=== PATIENT | male | born 1975 | race Caucasian/White ===

== ENCOUNTER 2021-07-21 05:49 | Outpatient (CLI) | payer BC, MEDICAID, SELFPAY ==
--- NOTE | 2021-07-21 06:15 | USCV_ITS ---
Rios Moreno Age: 46 Gender: M : 1975 Exam Date: 07/21/2021 06:12 Ordering Phys: Bernabe Disla Technologist: Exam Location: [facility] – [place] Indication: lt leg pain with exertion Risk Factors: Previous Vascular Surgery: RIGHT LEFT BP: 120.0 / 70.00 BP: 120.0/ 70.00 0 0 Waveform Velocity (cm/s) Velocity (cm/s) Waveform Triphasic 84.7 Iliac Prox 136.7 Triphasic Triphasic 82.3 Iliac Mid 97.9 Triphasic Triphasic 76.9 Iliac Distal 68.0 Triphasic Triphasic 72.2 LAND MANAGEMENT SUPERVISOR 57.3 Triphasic Triphasic 94.8 SFA Prox 79.5 Triphasic Triphasic 105.8 SFA Mid 90.9 Triphasic Triphasic SFA Dist Triphasic 93.7 122.2 Triphasic 57.5 POP 53.5 Triphasic Triphasic 69.1 PACS ADMINISTRATOR 63.0 Biphasic Biphasic 68.0 DPA 45.1 Biphasic 1.0 JOSETTE 1.0 FINDINGS Resting JOSETTE of 1.0 bilaterally Normal arterial Doppler flow velocities and Doppler waveforms bilaterally CONCLUSIONS No evidence of any significant arterial obstruction, based on the above findings. Dr Jaclyn Puentes MD [facility] (Electronically Signed) Final Date: 21 Jul 2021 19:16 S
== END 2021-07-21 05:50 | disposition home or self-care (01) ==
LOC: RAD 05:51
PROVIDERS: PCP Registered Nurse; Visit Provider Nurse Practitioner Family
DX: M79.604 Pain in right leg (principal); M79.605 Pain in left leg
CPT/HCPCS: 93925

== ENCOUNTER → 2021-09-22 15:58 | Outpatient (BNVA) | payer BC, MEDICAID, SELFPAY | PROVIDERS: PCP Nurse Practitioner Family; Visit Provider Internal Medicine Cardiovascular Disease | DX: R06.02 Shortness of breath (principal); R00.0 Tachycardia, unspecified; R07.9 Chest pain, unspecified; R06.00 Dyspnea, unspecified; Z86.711 Personal history of pulmonary embolism; R55 Syncope and collapse; I49.1 Atrial premature depolarization; I49.3 Ventricular premature depolarization | CPT/HCPCS: 93005; 93270; 99204; 99205 ==

== ENCOUNTER 2022-08-27 18:10 | Emergency (ER) | payer BC, MEDICAID, SELFPAY ==
[2022-08-27] VITALS (8 sets, daily range): BP systolic 110–140; BP diastolic 72–86; PULSE 82–103; RESP 18; TEMP 36.7; O2SAT 95–99; BMI 22.6
--- NOTE | 2022-08-27 18:57 | CTR_ITS ---
PROCEDURE INFORMATION: Exam: CT Abdomen And Pelvis With Contrast Exam date and time: 08/27/2022 7:15 PM Age: 47 years old Clinical indication: Nausea and vomiting; Abdominal pain; Localized; Prior surgery; Surgery date: 6+ months; Surgery type: Appy; Patient HX: C/O left sided abd pain with n/v. ; Additional info: L flank pain TECHNIQUE: Imaging protocol: Computed tomography of the abdomen and pelvis with contrast. Radiation optimization: All CT scans at this facility use at least one of these dose optimization techniques: automated exposure control; mA and/or kV adjustment per patient size (includes targeted exams where dose is matched to clinical indication); or iterative reconstruction. Contrast material: OMNI 350; Contrast volume: 100 ml; Contrast route: INTRAVENOUS (IV); REPORTING DATA: Count of CT and Cardiac NM exams in prior 12 months: This patient has received 3 known CTs and 0 known cardiac nuclear medicine studies in the 12 months prior to the current study. COMPARISON: CT chest w con* [id number] 08/21/2022 2:13 PM RADIATION DOSE METRICS: Total DLP (mGy-cm): 595.39 FINDINGS: Mediastinal space: There is mucosal thickening of the distal esophagus. Diaphragm: Small hiatal hernia. Liver: Sub cm cyst with benign features in the right hepatic lobe. Gallbladder and bile ducts: Normal. No calcified stones. No ductal dilation. Pancreas: Normal. No ductal dilation. Spleen: Normal. No splenomegaly. Adrenal glands: Normal. No mass. Kidneys and ureters: There is an 8.2 x 4.5 x 4.5 mm calculus in the proximal left ureter.Mild to moderate hydronephrosis/hydroureter and associated inflammatory stranding. Stomach and bowel: Unremarkable. No obstruction. No mucosal thickening. Appendix: No evidence of appendicitis. Intraperitoneal space: Unremarkable. No free air. No significant fluid collection. Vasculature: Unremarkable. No abdominal aortic aneurysm. Lymph nodes: Unremarkable. No enlarged lymph nodes. Urinary bladder: Unremarkable as visualized. Reproductive: There are calcifications in the prostate gland. Bones/joints: Unremarkable. No acute fracture. Soft tissues: Unremarkable. CT/CT abdomen pelvis w con* [id number] IMPRESSION: 1. There is an 8 mm calculus in the proximal left ureter with obstructive changes as described above. 2. Mucosal thickening of the distal esophagus consistent with nonspecific esophagitis.
[2022-08-27] MEDS: ondansetron 2 mg/ML SDV 2 mL 4 MG IVP (19:05)
[2022-08-27] MEDS: HYDROmorphone 1 mg/mL INJ 1 mL IVP ×2 (19:05→19:30)
[2022-08-27] MEDS: sodium chloride 0.9% 1,000 ML 999 ML IV (19:05)
[2022-08-27 19:17] LABS: Basophils % 0.1 %; Eosinophils # 0.1 10^3/uL (0.0-0.8); Eosinophils % 0.4 %; Hematocrit 45.1 % (42.0-52.0); Hemoglobin 15.3 g/dL (11.7-16.6); Lymphocytes # 0.7 10^3/uL (0.8-4.8); Lymphocytes % 5.2 %; Mean Corpuscular HGB Conc 33.9 g/dL (30.0-36.0); Mean Corpuscular Hemoglobin 30.7 pg (28.0-34.0); Mean Corpuscular Volume 90.4 fl (80-94); Mean Platelet Volume 10.3 fL (7.4-10.4); Monocytes # 0.4 10^3/uL (0.2-0.9); Monocytes % 3.1 %; Neutrophils # 12.11 10^3/uL (1.8-7.7); Neutrophils % 90.8 %; Nucleated Red Blood Cells % 0 %; Platelet Count 227 10^3/cmm (130-400); Red Blood Count 4.99 10^6/uL (4.1-5.3); White Blood Count 13.4 10^3/uL (4.0-10.0)
[2022-08-27] MEDS: iohexol 350 mg/mL 500 mL Btl (per mL) IV (19:20)
[2022-08-27 19:38] LABS: Alanine Aminotransferase 11 U/L (0-41); Albumin Level 4.8 g/dL (3.5-5.2); Alkaline Phosphatase 69 U/L (40-130); Aspartate Amino Transferase 14 U/L (0-40); Blood Urea Nitrogen 15 mg/dL (6-20); Calcium 9.2 mg/dL (8.5-10.5); Carbon Dioxide 26 mmol/L (22-29); Chloride 102 mmol/L (98-107); Globulin 2.7 g/dL (1.3-4.6); Glomerular Filtration Rate 54.3 mL/min (90-130); Glucose 116 mg/dL (65-115); Lipase 24 U/L (13-60); Osmolality Calculated 292 mOsm/kg (285-295); Sodium 140 mmol/L (136-145); Total Bilirubin 0.4 mg/dL (0.15-1.2); Total Protein 7.5 g/dL (6.6-8.7)
--- NOTE | 2022-08-27 21:39 | W.ED.ABDPA2 ---
HPI - Abdominal Pain General: Chief Complaint: Abdominal Pain Stated Complaint: N/V Time Seen by Provider: 08/27/22 18:44 Source: patient History of Present Illness: 47-year-old male with no significant medical history. He says that he fell recently, fracturing his shoulder and a couple of ribs. He began to have left-sided flank pain earlier in the day that is significantly intense with nausea and vomiting. No diarrhea no fever. No change in his urination as far as pain or color, although he notes a decreased in amount today. MD elicited complaint: abdominal pain and flank pain Pertinent past history: none Onset (ago): hour(s) Pain Consistency: intermittent Location: LLQ Severity: severe Quality: cramping and stabbing Radiation: LLQ Migration to: no migration Exacerbating factors: nothing Relieving factors: nothing Associated Symptoms: Reports chills, nausea, poor appetite and vomiting; Denies constipation, dyspepsia, dysuria, fever(s) and hematemesis Review of Systems Const: Reports: chills; Denies: fever(s) Card: Denies: chest pain Resp: Denies: dyspnea GI: Reports: abdominal pain, nausea and vomiting; Denies: hematemesis or constipation : Reports: flank pain; Denies: dysuria Musc: Reports: back pain PFSH ED PFSH: Medical History History of DVT (deep vein thrombosis) History of gastric ulcer History of left shoulder fracture TIA (transient ischemic attack) x 4 Surgical History History of appendectomy History of tonsillectomy and adenoidectomy Family History Mother Diabetes Chronic kidney disease (CKD) Grandfather Cancer Lung disease Father Heart disease CAD (coronary artery disease) Family/Other CAD (coronary artery disease) Diabetes Heart disease Stroke Grandmother Diabetes Stroke Denies family history of Clotting disorder Dementia Suicide Anesthesia complication Bleeding disorder Social History Smoking and tobacco status: current some day smoker smokeless tobacco Smokeless tobacco user: chewing tobacco Alcohol intake: never Substance/Drug Use: never Adopted: No Caregiver/support person: No Sexually active: Yes Do you think of yourself as: Straight/Heterosexual Current gender identity: Male Physical Exam Const: GENERAL APPEARANCE: cooperative and ill appearing (mildly); not frail appearing HENMT: COMMON NORMALS: normocephalic, atraumatic and Normal external nose present HEAD & SCALP: normocephalic and atraumatic FACE & SINUS: normal facial exam and face symmetric NOSE: Normal external nose present Eye: COMMON NORMALS: Equal, round and reactive pupils present and EOMs intact bilaterally PUPIL: Yes Equal, round and reactive pupils present Neck/C-Spine: GENERAL: Yes trachea midline Chest: CHEST: Yes Symmetrical chest wall rise Resp: COMMON NORMALS: normal respiratory effort, No retractions, No use of accessory muscles and clear to auscultation bilaterally AUSCULTATION: clear to auscultation bilaterally Cardio: COMMON NORMALS: regular rate and regular rhythm RATE: regular rate RHYTHM: regular rhythm GI: COMMON NORMALS: Normal to inspection, nondistended, normoactive bowel sounds present PALPATION: Yes Tenderness to palpation present (GI) Details: LLQ : BLADDER/KIDNEY EXAM: Yes CVA tenderness on the right Back/Pelvis: GENERAL BACK: Yes CVA tenderness Extremity: COMMON NORMALS: no pedal edema Neuro: MAURICIO COMA SCALE: document GCS findings [place] coma scale eye opening: Spontaneous [place] coma scale verbal response: Orientated [place] coma scale motor response: Obey commands Mauricio coma scale total score: 15 SENSORY EXAM: Yes extremities (intact) Psych: COMMON NORMALS: speech normal SPEECH: Yes normal speech Skin: COMMON NORMALS: no rashes or lesions noted GENERAL SKIN EXAM: no rashes or lesions noted Course Vital Signs: Vital signs: Vital Signs Temperature 98.0 F 08/27/22 18:15 Pulse Rate 88 08/27/22 23:06 Respiratory Rate 18 08/27/22 23:06 Blood Pressure 129/72 08/27/22 23:06 Pulse Oximetry 97 08/27/22 23:06 Oxygen Delivery Me thod Room Air 08/27/22 18:15 MDM - Abdominal Pain Medical Decision Making Vitals are normal. White blood cell count is 13.4. Creatinine is 1.4. Other laboratory not remarkable. CT shows an 8 mm calculus in the proximal left ureter. Urinalysis is pending. Urinalysis shows no infection. Pain is better controlled. No more vomiting. Will allow home on pain medication, antiemetic, and Flomax. Urgent urology referral as an outpatient, as 8 mm stones will likely require intervention. Case management has been contacted to make the patient an appointment. He knows to return for worsening symptoms Lab Data 08/27/22 19:08 08/27/22 19:08 Labs/Radiology: Radiology Impressions Abdomen/Pelvis CT 08/27/22 18:57 IMPRESSION: 1. There is an 8 mm calculus in the proximal left ureter with obstructive changes as described above. 2. Mucosal thickening of the distal esophagus consistent with nonspecific esophagitis. Laboratory Results WBC 13.4 10^3/uL (4.0-10.0) H 08/27/22 19:08 RBC 4.99 10^6/uL (4.1-5.3) 08/27/22 19:08 Hgb 15.3 g/dL (11.7-16.6) 08/27/22 19:08 Hct 45.1 % (42.0-52.0) 08/27/22 19:08 MCV 90.4 fl (80-94) 08/27/22 19:08 MCH 30.7 pg (28.0-34.0) 08/27/22 19:08 MCHC 33.9 g/dL (30.0-36.0) 08/27/22 19:08 RDW 12.0 % (12.1-15.1) L 08/27/22 19:08 Plt Count 227 10^3/cmm (130-400) 08/27/22 19:08 MPV 10.3 fL (7.4-10.4) 08/27/22 19:08 Neut % (Auto) 90.8 % 08/27/22 19:08 Lymph % (Auto) 5.2 % 08/27/22 19:08 [place] % (Auto) 3.1 % 08/27/22 19:08 Eos % (Auto) 0.4 % 08/27/22 19:08 Baso % (Auto) 0.1 % 08/27/22 19:08 Neut # (Auto) 12.11 10^3/uL (1.8-7.7) H 08/27/22 19:08 Lymph # (Auto) 0.7 10^3/uL (0.8-4.8) L 08/27/22 19:08 [place] # (Auto) 0.4 10^3/uL (0.2-0.9) 08/27/22 19:08 Eos # (Auto) 0.1 10^3/uL (0.0-0.8) 08/27/22 19:08 Baso # (Auto) 0.0 10^3/uL (0.0-0.1) 08/27/22 19:08 Nucleated RBC % (auto) 0 % 08/27/22 19:08 Nucleated RBCs # 0.0 /100WBC 08/27/22 19:08 Sodium 140 mmol/L (136-145) 08/27/22 19:08 Potassium 5.0 mmol/L (3.5-5.1) 08/27/22 19:08 Chloride 102 mmol/L (98-107) 08/27/22 19:08 Carbon Dioxide 26 mmol/L (22-29) 08/27/22 19:08 Anion Gap 17.0 (5-19) 08/27/22 19:08 BUN 15 mg/dL (6-20) 08/27/22 19:08 Creatinine 1.4 mg/dL (0.7-1.2) H 08/27/22 19:08 GFR Calculation 54.3 mL/min (90-130) L 08/27/22 19:08 Glucose 116 mg/dL (65-115) H 08/27/22 19:08 Calculated Osmolality 292 mOsm/kg (285-295) 08/27/22 19:08 Calcium 9.2 mg/dL (8.5-10.5) 08/27/22 19:08 Total Bilirubin 0.4 mg/dL (0.15-1.2) 08/27/22 19:08 AST 14 U/L (0-40) 08/27/22 19:08 ALT 11 U/L (0-41) 08/27/22 19:08 Alkaline Phosphatase 69 U/L (40-130) 08/27/22 19:08 C-Reactive Protein 3.0 mg/L (0.0-4.9) 08/27/22 19:08 Total Protein 7.5 g/dL (6.6-8.7) 08/27/22 19:08 Albumin 4.8 g/dL (3.5-5.2) 08/27/22 19:08 Globulin 2.7 g/dL (1.3-4.6) 08/27/22 19:08 Lipase 24 U/L (13-60) 08/27/22 19:08 Urine Color Yellow (Yellow) 08/27/22 21:34 Urine Appearance Cloudy (CLEAR) A 08/27/22 21:34 Urine pH 8 (5-7) H 08/27/22 21:34 Ur Specific [place] 1.010 (1.005-1.030) 08/27/22 21:34 Urine Protein Trace (Negative) 08/27/22 21:34 Urine Glucose (UA) Norm (Normal) 08/27/22 21:34 Urine Ketones 1+ (Negative) H 08/27/22 21:34 Urine Blood 3+ (Negative) H 08/27/22 21:34 Urine Nitrate Negative (Negative) 08/27/22 21:34 Urine Bilirubin Neg (Negative) 08/27/22 21:34 Prot Sulfosalicylic Acd Negative (Negative) 08/27/22 21:34 Urine Urobilinogen 1 mg/dL (Negative) H 08/27/22 21:34 Ur Leukocyte Esterase Negative (Negative) 08/27/22 21:34 Urine RBC 40-50 /hpf (0-2) H 08/27/22 21:34 Urine WBC 0-4 /hpf (0-5) H 08/27/22 21:34 Ur Squamous Epith Cells 0-4 /hpf (0-5) H 08/27/22 21:34 Amorphous Sediment Not Reportable 08/27/22 21:34 Urine Bacteria 3+ /hpf (NONE) H 08/27/22 21:34 Discharge Plan Discharge Patient Disposition: Home Clinical Impression: Ureterolithiasis Condition: Stable Prescriptions: New Percocet 7.5-325 mg tablet 1 tab PO Q6H PRN (Reason: pain) Qty: 10 0RF ondansetron 4 mg film 4 mg PO DAILY PRN (Reason: nausea and vomiting) Qty: 10 0RF Flomax 0.4 mg capsule 0.4 mg PO DAILY Qty: 10 0RF No Action albuterol sulfate [ProAir HFA] 90 mcg/actuation HFA aerosol inhaler 2 puff inhalation QID PRN (Reason: shortness of breath or wheezing) Qty: 6.7 0RF aspirin [Adult Aspirin Regimen] 81 mg tablet,delayed release (DR/EC) 81 mg PO DAILY PRN Discharge Orders: Discharge ED (Routine); Ordered 08/27/22 Ordered By: Stan Avery Referrals: Emilia Menchaca FNP [Primary Care Provider] - Patient Instructions: Kidney Stones (ED), Opioid Safety, Pain Management Activity Restrictions/Additional Instructions: Medications as directed. Case management will call you likely tomorrow with a urology appointment this coming week. Return for fever greater than 100, vomiting liquids or medications despite treatment, increasing pain despite treatment, other concerning symptoms. Coding Level of Care Code ED Blind Teacher for Jamaal Mcintosh
[2022-08-27 22:23] LABS: Blood Urine 3+ (Negative); Glucose Urine UA Norm (Normal); Ketones Urine 1+ (Negative); Nitrate Urine Negative (Negative); Protein Urine Trace (Negative); Urine Appearance Cloudy (CLEAR); Urine Color Yellow (Yellow); pH Urine 8 (5-7)
[2022-08-27 22:24] LABS: Add Urine Microscopic? YES; Bilirubin Urine Neg (Negative); Leukocyte Esterase Urine Negative (Negative); Urobilinogen Urine 1 mg/dL (Negative)
[2022-08-27 22:25] LABS: RBC Urine 40-50 /hpf (0-2); Sulfosalicylic Acid Urine Negative (Negative); WBC Urine 0-4 /hpf (0-5)
[2022-08-27 22:26] LABS: Add Urine Culture? Yes; Bacteria Urine 3+ /hpf; Squamous Epithelial Cell Urine 0-4 /hpf (0-5)
[2022-08-27] MEDS: oxyCODONE-APAP 5-325 mg Tablet 2 TAB PO (22:44)
[2022-08-27] MEDS: HYDROmorphone 1 mg/mL INJ 1 mL 0.5 MG IVP (22:46)
[2022-08-27] MEDS: tamsulosin 0.4 mg Capsule PO (23:04)
--- NOTE | 2022-08-28 10:05 | PC.SOCIAL ---
Addendum entered by Leonor Cope 09/07/22 15:26: [facility] did receive patients information. Addendum entered by Leonor Cope 09/07/22 15:23: medical office manager received voicemail from [facility] requesting patients images be uploaded to the cloud. medical office manager asked community arts worker to upload images to Going. Original Note: Urology Referral Spoke with patient, he does not have a preference where referral is sent. Referral faxed to [facility] at this time.
== END 2022-08-27 23:18 | disposition home or self-care (01) ==
PROVIDERS: Emergency Provider Emergency Medicine; PCP Nurse Practitioner Family
DX: N20.1 Calculus of ureter (principal); Z79.82 Long term (current) use of aspirin; F17.220 Nicotine dependence, chewing tobacco, uncomplicated; Z86.73 Personal history of transient ischemic attack (TIA), and cerebral infarction without residual deficits
CPT/HCPCS: 36415; 74177; 80053; 81001; 83690; 85025; 86140; 87086; 96374; 96375; 96376; 99285; J1170; J2405; J7030; Q9967

== ENCOUNTER → 2022-08-30 09:38 | Outpatient (BNVA) | payer BC, MEDICAID, SELFPAY | PROVIDERS: PCP Nurse Practitioner Family; Referring Provider Family Medicine; Visit Provider Specialist | DX: S42.112A Displaced fracture of body of scapula, left shoulder, initial encounter for closed fracture (principal); W20.8XXA Other cause of strike by thrown, projected or falling object, initial encounter | CPT/HCPCS: 73010 ==

== ENCOUNTER → 2022-09-13 09:41 | Outpatient (BNVA) | payer BC, MEDICAID, SELFPAY | PROVIDERS: PCP Nurse Practitioner Family; Visit Provider Specialist | DX: S42.112D Displaced fracture of body of scapula, left shoulder, subsequent encounter for fracture with routine healing (principal); W20.8XXD Other cause of strike by thrown, projected or falling object, subsequent encounter | CPT/HCPCS: 73010 ==

== ENCOUNTER 2022-10-03 06:00 | Outpatient (CLI) | payer BC, MEDICAID, SELFPAY | END 2022-10-03 06:01 | LOC: SPT 10-10 07:44 | PROVIDERS: PCP Nurse Practitioner Family; Visit Provider Specialist | DX: Z46.89 Encounter for fitting and adjustment of other specified devices (principal); S42.109D Fracture of unspecified part of scapula, unspecified shoulder, subsequent encounter for fracture with routine healing; X58.XXXD Exposure to other specified factors, subsequent encounter | CPT/HCPCS: 97760; L3670 ==

== ENCOUNTER → 2022-10-09 08:02 | Outpatient (BNVA) | payer BC, MEDICAID, SELFPAY | PROVIDERS: PCP Nurse Practitioner Family; Visit Provider Specialist | DX: S42.112D Displaced fracture of body of scapula, left shoulder, subsequent encounter for fracture with routine healing; W20.8XXD Other cause of strike by thrown, projected or falling object, subsequent encounter | CPT/HCPCS: 73030 ==

== ENCOUNTER → 2022-10-23 08:09 | Outpatient (BNVA) | payer BC, MEDICAID, SELFPAY | PROVIDERS: PCP Nurse Practitioner Family; Visit Provider Nurse Practitioner Family | DX: S42.112D Displaced fracture of body of scapula, left shoulder, subsequent encounter for fracture with routine healing; X58.XXXD Exposure to other specified factors, subsequent encounter | CPT/HCPCS: 73030 ==

== ENCOUNTER 2022-10-26 08:53 | Emergency (ER) | payer BC, MEDICAID, SELFPAY ==
[2022-10-26 08:58] VITALS: BP 108/73; PULSE 81; RESP 16; O2SAT 98
[2022-10-26 09:04] VITALS: TEMP 36.7
--- NOTE | 2022-10-26 09:20 | ED_ITS ---
Documented by User: MALACHI Herrera 10/26/22 12:57 HPI - Extremity Problem General: Chief complaint: Extremity Injury, Upper Stated complaint: left shoulder, physician sent get ct scan Time Seen by Provider: 10/26/22 09:05 Source: patient Mode of arrival: ambulatory Limitations: no limitations History of Present Illness: Patient is a 47-year-old male with history of DVT/PE who presents to the emergency department complaining of left arm numbness, pain, and color/temp changes onset 3 weeks. Patient was sent from ortho for evaluation of his symptoms stating that upon their examination he was having numbness, pain, and decreased temperature of the left upper extremity. Patient states that his initial shoulder injury occurred approximately 2 months ago when he was working out in the price chopping down trees, when a branch that was cut down swung around and hit him in the posterior left shoulder. He has been followed by ortho and has been doing his range of motion and PT as instructed, as he suffered a left scapular fracture at the time. Approximately 3 weeks ago, he started having sporadic episodes of intense left shoulder pain that has been associated with the coolness, numbness, and pain down his left arm. These episodes have increased in pain and frequency since they began 3 weeks ago, for which he was prescribed gabapentin by ortho to begin taking. However, this has not improved his symptoms and he sent today specifically for an ultrasound rule out of an acute arterial/venous occlusion of the left upper extremity. Ortho is also trying to get him scheduled for nerve conduction studies. He denies any chest pain, shortness of breath, or any other symptoms. MD Complaint: extremity pain, extremity swelling and cold extremity Onset (ago): week(s) Location: left Quality: sharp (Severe) Relieving factors: nothing Exacerbating factors: range of motion and palpation Associated symptoms: Deny chest pain or fever(s) Context: other (Left scapular fracture status post trauma) Review of Systems Const: Denies: fever(s) or chills Eyes: Denies: change in vision, blurry vision, photophobia, eye discharge, floaters or seeing flashes ENMT: Denies: throat pain, odynophagia, ear or mastoid pain, ear discharge, nasal discharge, epistaxis or sinus pain Card: Denies: chest pain, palpitations, lightheadedness, syncope or pre- syncope Resp: Denies: dyspnea or pain on inspiration GI: Denies: abdominal pain : Denies: flank pain or hematuria Musc: Reports: extremity pain (Left upper extremity), joint pain (Left shoulder), limited range of motion (Left upper extremity) and muscle weakness (Left upper extremity); Denies: neck pain or back pain Neuro: Reports: numbness in extremities (Left upper extremity) and sensory changes (Left upper extremity/coolness); Denies: headache(s), weakness in extremities or dizziness PFSH ED PFSH: Medical History History of DVT (deep vein thrombosis) History of gastric ulcer History of left shoulder fracture TIA (transient ischemic attack) x 4 Surgical History History of appendectomy History of tonsillectomy and adenoidectomy Family History Mother Diabetes Chronic kidney disease (CKD) Grandfather Cancer Lung disease Father Heart disease CAD (coronary artery disease) Family/Other CAD (coronary artery disease) Diabetes Heart disease Stroke Grandmother Diabetes Stroke Denies family history of Clotting disorder Dementia Suicide Anesthesia complication Bleeding disorder Social History Smoking and tobacco status: current some day smoker smokeless tobacco Smokeless tobacco user: chewing tobacco Alcohol intake: never Substance/Drug Use: never Adopted: No Caregiver/support person: No Sexually active: Yes Do you think of yourself as: Straight/Heterosexual Current gender identity: Male Physical Exam Const: COMMON NORMALS: no acute distress, average body habitus, patient oriented x3, no limitations, healthy appearing, alert and well nourished HENMT: COMMON NORMALS: normocephalic and atraumatic HEAD & SCALP: normal to inspection, normocephalic and atraumatic Neck/C-Spine: COMMON NORMALS: full ROM, no lymphadenopathy and supple Resp: COMMON NORMALS: normal respiratory effort and clear to auscultation bilaterally AUSCULTATION: clear to auscultation bilaterally Cardio: COMMON NORMALS: regular rate and regular rhythm RATE: regular rate RHYTHM: regular rhythm Back/Pelvis: COMMON NORMALS: thoracic and lumbar spine normal to inspection Extremity: COMMON NORMALS: capillary refill normal, no joint enlargement and no clubbing, cyanosis or edema GENERAL: Yes normal exam except as noted LEFT UPPER EXTREMITY: Yes shoulder joint OTHER: Range of motion of the left shoulder is limited due to patient's pain. The left hand is minimally cool to the touch compared to the right, with some extension up the arm proximally. No evidence of left hand edema compared to the right. Decreased balance wheel arm burnisher strength left hand. He exhibits 2+ radial pulse bilaterally. No significant discoloration noted at this time. Decreased sensation to light touch of the left hand. No evidence of trauma, bruising, or deformity. No swelling noted anywhere on extremity. Neuro: COMMON NORMALS: patient oriented x3, moves all extremities, no focal motor deficits and no sensory deficits noted SENSORIUM/ORIENTATION: Yes alert Skin: COMMON NORMALS: no rashes or lesions noted GENERAL SKIN EXAM: no rashes or lesions noted Course Vital Signs: Vital signs: Vital Signs Temperature 98.1 F 10/26/22 09:04 Pulse Rate 81 10/26/22 08:58 Respiratory Rate 17 10/26/22 10:09 Blood Pressure 108/73 10/26/22 08:58 Pulse Oximetry 98 10/26/22 08:58 Oxygen Delivery Me thod Room Air 10/26/22 08:58 MDM - Extremity (Nontraumatic) Medical Decision Making Chart reviewed and patient discussed with midlevel. Agree with assessment and plan. US arterial showing no acute occlusion. US venous showing a nonocclusive thrombus to his basilic vein. Obviously this is a superficial vessel however given patient's history of previous DVT/PE I think it is reasonable to place him on a low-dose anticoagulation. I discussed with Dr. Phan who recommends Eliquis 2.5 mg twice daily. He will follow-up with primary care in the next 2 weeks to determine length of treatment. Recommend continuing to follow-up with orthopedics and plan for upcoming nerve conduction studies for further evaluation. Return to ED precautions given. Lab Data Radiology Impressions Duplex Scan Upper Extremity Artery 10/26/22 09:46 IMPRESSION: No acute findings. Discharge Plan Discharge Patient Disposition: Home Clinical Impression: Acute thrombosis of left basilic vein Condition: Stable Prescriptions: New Eliquis 2.5 mg tablet 2.5 mg PO BID Qty: 60 0RF No Action albuterol sulfate [ProAir HFA] 90 mcg/actuation HFA aerosol inhaler 2 puff inhalation QID PRN (Reason: shortness of breath or wheezing) Qty: 6.7 0RF (DME) Left shoulder immobilizer See Rx Instructions .Route .MEDSUPPLY Qty: 1 0RF Rx Instructions: As directed gabapentin 300 mg capsule 300 mg PO BID Qty: 30 0RF ondansetron 4 mg film 4 mg PO DAILY PRN (Reason: nausea and vomiting) Qty: 10 0RF Discharge Orders: Discharge ED (Routine); Ordered 10/26/22 Ordered By: Felicitas Rowe Referrals: Emilia Menchaca FNP [Primary Care Provider] - Patient Instructions: Superficial Thrombophlebitis (ED) Activity Restrictions/Additional Instructions: As we discussed your venous ultrasound shows a clot in one of your superficial veins in your arm. Due to your history of previous blood clots we are opting to place you on anticoagulation therapy at this time although not at a full dose. I would like you to continue following up with your primary care provider as well as your orthopedic provider in regards to the continued shoulder pain and numbness/tingling in your arm. Coding Level of Care Code ED Farmworker Fur for Chg Fwd Documented by User: Jackson Phan DO 10/26/22 16:36 HPI - Extremity Problem General: Chief complaint: Extremity Injury, Upper Stated complaint: left shoulder, physician sent get ct scan Time Seen by Provider: 10/26/22 09:05 [facility] ED PFS: Medical History History of DVT (deep vein thrombosis) History of gastric ulcer History of left shoulder fracture TIA (transient ischemic attack) x 4 Surgical History History of appendectomy History of tonsillectomy and adenoidectomy Family History Mother Diabetes Chronic kidney disease (CKD) Grandfather Cancer Lung disease Father Heart disease CAD (coronary artery disease) Family/Other CAD (coronary artery disease) Diabetes Heart disease Stroke Grandmother Diabetes Stroke Denies family history of Clotting disorder Dementia Suicide Anesthesia complication Bleeding disorder Social History Smoking and tobacco status: current some day smoker smokeless tobacco Smokeless tobacco user: chewing tobacco Alcohol intake: never Substance/Drug Use: never Adopted: No Caregiver/support person: No Sexually active: Yes Do you think of yourself as: Straight/Heterosexual Current gender identity: Male Course Vital Signs: Vital signs: Vital Signs Temperature 98.1 F 10/26/22 09:04 Pulse Rate 81 10/26/22 08:58 Respiratory Rate 17 10/26/22 10:09 Blood Pressure 108/73 10/26/22 08:58 Pulse Oximetry 98 10/26/22 08:58 Oxygen Delivery Me thod Room Air 10/26/22 08:58 MDM - Extremity (Nontraumatic) Medical Decision Making Chart reviewed and patient discussed with midlevel. Agree with assessment and plan. Lab Data Radiology Impressions Duplex Scan Upper Extremity Artery 10/26/22 09:46 IMPRESSION: No acute findings. Discharge Plan Discharge Patient Disposition: Home Clinical Impression: Acute thrombosis of left basilic vein Condition: Stable Prescriptions: New Eliquis 2.5 mg tablet 2.5 mg PO BID Qty: 60 0RF No Action albuterol sulfate [ProAir HFA] 90 mcg/actuation HFA aerosol inhaler 2 puff inhalation QID PRN (Reason: shortness of breath or wheezing) Qty: 6.7 0RF (DME) Left shoulder immobilizer See Rx Instructions .Route .MEDSUPPLY Qty: 1 0RF Rx Instructions: As directed gabapentin 300 mg capsule 300 mg PO BID Qty: 30 0RF ondansetron 4 mg film 4 mg PO DAILY PRN (Reason: nausea and vomiting) Qty: 10 0RF Discharge Orders: Discharge ED (Routine); Ordered 10/26/22 Ordered By: Felicitas Rowe Referrals: Emilia Menchaca FNP [Primary Care Provider] - Patient Instructions: Superficial Thrombophlebitis (ED) Activity Restrictions/Additional Instructions: As we discussed your venous ultrasound shows a clot in one of your superficial veins in your arm. Due to your history of previous blood clots we are opting to place you on anticoagulation therapy at this time although not at a full dose. I would like you to continue following up with your primary care provider as well as your orthopedic provider in regards to the continued shoulder pain and numbness/tingling in your arm. Coding Level of Care Code ED Farmworker Fur for Jamaal Mcintosh
--- NOTE | 2022-10-26 09:46 | USCV_ITS ---
Rios Moreno Age: 47 Gender: M : 1975 Exam Date: 10/26/2022 10:10 Ordering Phys: Felicitas Rowe Technologist: Joseph Zaman [place]am [place] [facility] [place] Indication: lt arm pain and numbness cold fingers PROCEDURES: Venous duplex imaging was performed in only the left upper extremity. The following venous structures were evaluated: internal jugular vein, subclavian vein, axillary vein, and brachial veins. FINDINGS: There is non occluding thrombus in the lt Basilic vein in the upper arm. 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
--- NOTE | 2022-10-26 09:46 | USR_ITS ---
PROCEDURE INFORMATION: Exam: US Duplex Left Upper Extremity Arteries Exam date and time: 10/26/2022 10:21 AM Age: 47 years old Clinical indication: Pain; Arm, lower; Left; Additional info: Left arm pain/numbness TECHNIQUE: Imaging protocol: Left Real-time ultrasound scan of the arteries of the left upper extremity with 2-D durand scale, color Doppler flow and spectral waveform analysis. COMPARISON: CT chest w con* [id number] 08/21/2022 2:13 PM FINDINGS: Left subclavian artery: No occlusion or significant stenosis. Normal waveform. Left axillary artery: No occlusion or significant stenosis. Normal waveform. Left brachial artery: No occlusion or significant stenosis. Normal waveform. Left radial artery: Not evaluated Left ulnar artery: Not evaluated Soft tissues: Unremarkable. US/[place] [id number] IMPRESSION: No acute findings.
[2022-10-26 10:09] VITALS: RESP 17
[2022-10-26] MEDS: morphine 4 mg/mL SDV 1 mL IM (10:09)
== END 2022-10-26 12:43 | disposition home or self-care (01) ==
PROVIDERS: Emergency Provider Physician Assistant; PCP Nurse Practitioner Family
DX: I65.1 Occlusion and stenosis of basilar artery (principal); F17.220 Nicotine dependence, chewing tobacco, uncomplicated; Z86.73 Personal history of transient ischemic attack (TIA), and cerebral infarction without residual deficits
CPT/HCPCS: 93931; 93971; 96372; 99284; J2270

== ENCOUNTER → 2022-11-09 09:12 | Outpatient (BNVA) | payer BC, MEDICAID, SELFPAY | PROVIDERS: PCP Nurse Practitioner Family; Visit Provider Nurse Practitioner Family | DX: Z79.01 Long term (current) use of anticoagulants (principal); N20.0 Calculus of kidney | CPT/HCPCS: 81000; 85025 ==

== ENCOUNTER → 2022-11-13 14:11 | Outpatient (BNVA) | payer BC, MEDICAID, SELFPAY | PROVIDERS: PCP Nurse Practitioner Family; Visit Provider Specialist | DX: S42.112D Displaced fracture of body of scapula, left shoulder, subsequent encounter for fracture with routine healing; X58.XXXD Exposure to other specified factors, subsequent encounter; I82.612 Acute embolism and thrombosis of superficial veins of left upper extremity; Z79.01 Long term (current) use of anticoagulants | CPT/HCPCS: 73030 ==

== ENCOUNTER → 2022-11-29 08:07 | Outpatient (BNVA) | payer BC, MEDICAID, SELFPAY | PROVIDERS: PCP Nurse Practitioner Family; Visit Provider Nurse Practitioner Family | DX: R39.9 Unspecified symptoms and signs involving the genitourinary system (principal); R31.9 Hematuria, unspecified; Z79.01 Long term (current) use of anticoagulants | CPT/HCPCS: 81000 ==

== ENCOUNTER 2022-12-07 09:06 | Outpatient (CLI) | payer BC, MEDICAID, SELFPAY ==
--- NOTE | 2022-12-07 09:30 | US_ITS ---
WS: [id number] ULTRASOUND RENAL TECHNIQUE: Ultrasound examination of both kidneys. CLINICAL INFORMATION: R31.9 - Hematuria, unspecified COMPARISON: None. FINDINGS: RIGHT: Right kidney is normal in size and appearance. Echogenicity: Normal. Cortical thickness: 1.5 cm; Normal. Hydronephrosis: None. Perinephric fluid: None. Right kidney measures: 9.1,9.3 cm x 4.5 cm x 4.0 cm. LEFT: Left kidney is normal in size and appearance. Echogenicity: Normal. Cortical thickness: 1.2 cm; Normal. Hydronephrosis: None. Perinephric fluid: None. Left kidney measures: 8.9 cm x 5.0 cm x 4.2 cm. Normal visualized aorta. Normal bladder. IMPRESSION: 1. Normal renal ultrasound 2. No hydronephrosis in either kidney. 3. Normal bladder.
== END 2022-12-07 09:07 | disposition home or self-care (01) ==
LOC: RAD 09:09
PROVIDERS: PCP Nurse Practitioner Family; Visit Provider Nurse Practitioner Family
DX: R31.9 Hematuria, unspecified (principal)
CPT/HCPCS: 76770

== ENCOUNTER → 2022-12-11 14:40 | Outpatient (BNVA) | payer BC, MEDICAID, SELFPAY | PROVIDERS: PCP Nurse Practitioner Family; Visit Provider Nurse Practitioner Family | DX: R39.9 Unspecified symptoms and signs involving the genitourinary system (principal); R31.9 Hematuria, unspecified | CPT/HCPCS: 81000; 87086 ==

== ENCOUNTER → 2022-12-21 11:24 | Outpatient (BNVA) | payer BC, MEDICAID, SELFPAY | PROVIDERS: PCP Nurse Practitioner Family; Visit Provider Specialist | DX: R31.9 Hematuria, unspecified; S42.112D Displaced fracture of body of scapula, left shoulder, subsequent encounter for fracture with routine healing; X58.XXXD Exposure to other specified factors, subsequent encounter | CPT/HCPCS: 73030; 81000 ==

== ENCOUNTER 2022-12-28 15:27 | Outpatient (CLI) | payer BC, MEDICAID, SELFPAY ==
--- NOTE | 2022-12-28 17:00 | CT_ITS ---
WS: [id number] CT LEFT SHOULDER, NONCONTRAST, 3D. HISTORY: SCAPULAR FRACTURE continued pain months after fracture. Technique: All CT scans at [facility] use at least one of these dose optimization techniques: automated exposure control; mA and/or kV adjustment per patient size (includes targeted exams where dose is matched to clinical indication); or iterative reconstruction. DLP: 423.99 mGy.cm COMPARISON: Radiograph 12/21/2022 Nonhealed fracture involving the body of the LEFT scapula. There is a fracture in the mid body displa arsalan by 4.8 mm. There is no callus formation. Fracture does not extend to involve the acromion or the coracoid. No glenoid fracture. Humeral head is normally seated in the glenoid. The clavicle is normal . No significant soft tissue edema at the fracture site. Noncalcified 3 mm nodule LEFT lower lobe stabl e since 08/21/2022. Additional calcified LEFT lower lobe nodules. IMPRESSION: Nonhealed fracture displaced by 4.8 mm involving the body of the scapula similar to the original CT o f 08/21/2022.
== END 2022-12-28 15:28 | disposition home or self-care (01) ==
LOC: RAD 15:30
PROVIDERS: PCP Nurse Practitioner Family; Visit Provider Specialist
DX: S42.11 Fracture of body of scapula (principal); X58.XXXD Exposure to other specified factors, subsequent encounter
CPT/HCPCS: 73200

== ENCOUNTER 2023-02-06 15:11 | Emergency (ER) | payer BC, MEDICAID, SELFPAY ==
--- NOTE | 2023-02-06 15:30 | ED_ITS ---
Documented by User: MALACHI Herrera 02/09/23 09:01 HPI - Extremity Problem General: Chief complaint: Extremity Injury, Upper Stated complaint: previous left arm injury/blood clot,Dr Wynne sent Time Seen by Provider: 02/06/23 15:20 Source: patient Mode of arrival: ambulatory Limitations: no limitations History of Present Illness: Patient is a nice 47-year-old male who presents to ED today at the request of the orthopedic clinic. Apparently back in October he was diagnosed with a superficial thrombus to his left basilic vein. He had suffered a scapular fracture a few months prior to this. Due to a previous history of DVT and subsequent PE he was placed on a low-dose Eliquis. He states he has been taking this medication as prescribed. He states he has an upcoming kidney procedure and was told by the orthopedic clinic to come to the emergency department for a repeat ultrasound of the left arm to make sure thrombus has dissolved prior to stopping his Eliquis for the upcoming procedure. Patient states he has been using a bone stimulator for his scapula fracture and states while using this he has pain in his arm. MD Complaint: extremity pain Location: left and upper extremity Radiation: none Relieving factors: nothing Associated symptoms: Reports no associated symptoms; Deny chest pain or rash Review of Systems Card: Denies: chest pain Resp: Denies: dyspnea Musc: Reports: extremity pain; Denies: neck pain, back pain, extremity swelling, joint swelling, joint redness or joint warmth Skin/Breast: Denies: rash Neuro: Denies: headache(s), numbness in extremities, weakness in extremities or sensory changes PFS ED PFSH: Medical History Fracture of left scapular body with delayed healing Complex regional pain syndrome I of upper limb Hx of nephrolithotomy with removal of calculi History of DVT (deep vein thrombosis) History of left shoulder fracture TIA (transient ischemic attack) x 4 History of gastric ulcer Surgical History History of appendectomy History of tonsillectomy and adenoidectomy Family History Mother Diabetes Chronic kidney disease (CKD) Grandfather Cancer Lung disease Father Heart disease CAD (coronary artery disease) Family/Other CAD (coronary artery disease) Diabetes Heart disease Stroke Grandmother Diabetes Stroke Denies family history of Clotting disorder Dementia Suicide Anesthesia complication Bleeding disorder Social History Smoking and tobacco/nicotine status: current some day tobacco/nicotine user smokeless tobacco Smokeless tobacco user: chewing tobacco Alcohol intake: never Substance/Drug Use: never Adopted: No Caregiver/support person: No Sexually active: Yes Do you think of yourself as: Straight/Heterosexual Current gender identity: Male Physical Exam Const: COMMON NORMALS: no acute distress, average body habitus, patient oriented x3, no limitations, healthy appearing, alert and well nourished GENERAL APPEARANCE: cooperative ORIENTATION/CONSCIOUSNESS: Yes awake, Yes oriented to person, Yes oriented to place and Yes oriented to time Chest: COMMONS NORMALS: normal inspection of the chest Resp: COMMON NORMALS: normal respiratory effort and clear to auscultation bilaterally AUSCULTATION: clear to auscultation bilaterally Cardio: COMMON NORMALS: regular rate and regular rhythm RATE: regular rate RHYTHM: regular rhythm Extremity: COMMON NORMALS: normal to inspection, capillary refill normal, no joint enlargement, no clubbing, cyanosis or edema, no calf tenderness and no pedal edema GENERAL: Yes normal exam except as noted LEFT UPPER EXTREMITY: Yes shoulder joint (TTP over known scapular fracture) Left shoulder joint: Yes neurovascular exam (normal) OTHER: normal arterial pulses throughout extremity; no color/temp changes noted; normal cap refill/sensation; no edema noted Neuro: COMMON NORMALS: patient oriented x3, moves all extremities, no focal motor deficits and no sensory deficits noted SENSORIUM/ORIENTATION: Yes alert, Yes oriented to person, Yes oriented to place and Yes oriented to time Skin: COMMON NORMALS: no rashes or lesions noted GENERAL SKIN EXAM: no rashes or lesions noted Course Vital Signs: Vital signs: Vital Signs Temperature 98.3 F 02/06/23 15:34 Pulse Rate 80 02/06/23 17:41 Respiratory Rate 17 02/06/23 17:41 Blood Pressure 102/66 02/06/23 17:41 Pulse Oximetry 99 02/06/23 17:41 Oxygen Delivery Me thod Room Air 02/06/23 17:41 MDM - Extremity (Nontraumatic) Lab Data Radiology Impressions Venous Duplex 02/06/23 16:08 IMPRESSION: No evidence of deep vein thrombosis. Discharge Plan Discharge Patient Disposition: Home Clinical Impression: H/O blood clots, Chronic anticoagulation Condition: Stable Prescriptions: No Action (DME) Left shoulder immobilizer See Rx Instructions .Route .MEDSUPPLY Qty: 1 0RF Rx Instructions: As directed (DME) Bone Growth Stimulator See Rx Instructions .Route .MEDSUPPLY Qty: 1 0RF Rx Instructions: As directed Eliquis 2.5 mg tablet 2.5 mg PO BID Qty: 60 2RF hydrocodone-acetaminophen 5-325 mg tablet 1 tab PO TID PRN (Reason: pain) 7 Days Qty: 21 0RF Discharge Orders: Discharge ED (Routine); Ordered 02/06/23 Ordered By: Kenzie Spann Referrals: Emilia Menchaca FNP [Primary Care Provider] - Discharge Diet: Usual diet Discharge Activity: Increase activity as tolerated Activity Restrictions/Additional Instructions: Ultrasound today reveals no findings of any type of deep or superficial clot. Please notify your surgeon to make them aware so they may choose when to have you stop your anticoagulation therapy prior to surgery. Sign Out Sign Out Data: Patient Sign Out occurred on 02/06/23 at 17:05. Patient's care was discussed, and care was transferred from MALACHI Herrera to MALACHI Lackey. Coding Level of Care Code ED Welfare Project Manager for Chg Fwd Documented by User: MALACHI Lackey 02/06/23 17:50 HPI - Extremity Problem General: Chief complaint: Extremity Injury, Upper Stated complaint: previous left arm injury/blood clot,Dr Wynne sent Time Seen by Provider: 02/06/23 15:20 PFSH ED PFSH: Medical History Fracture of left scapular body with delayed healing Complex regional pain syndrome I of upper limb Hx of nephrolithotomy with removal of calculi History of DVT (deep vein thrombosis) History of left shoulder fracture TIA (transient ischemic attack) x 4 History of gastric ulcer Surgical History History of appendectomy History of tonsillectomy and adenoidectomy Family History Mother Diabetes Chronic kidney disease (CKD) Grandfather Cancer Lung disease Father Heart disease CAD (coronary artery disease) Family/Other CAD (coronary artery disease) Diabetes Heart disease Stroke Grandmother Diabetes Stroke Denies family history of Clotting disorder Dementia Suicide Anesthesia complication Bleeding disorder Social History Smoking and tobacco/nicotine status: current some day tobacco/nicotine user smokeless tobacco Smokeless tobacco user: chewing tobacco Alcohol intake: never Substance/Drug Use: never Adopted: No Caregiver/support person: No Sexually active: Yes Do you think of yourself as: Straight/Heterosexual Current gender identity: Male Course Vital Signs: Vital signs: Vital Signs Temperature 98.3 F 02/06/23 15:34 Pulse Rate 80 02/06/23 17:41 Respiratory Rate 17 02/06/23 17:41 Blood Pressure 102/66 02/06/23 17:41 Pulse Oximetry 99 02/06/23 17:41 Oxygen Delivery Me thod Room Air 02/06/23 17:41 MDM - Extremity (Nontraumatic) Medical Decision Making Kenzie Spann PA-C: Transfer of care from Felicitas Rowe PA-C at 1700. I was notified that we are still waiting for ultrasound results to finalize as it appears patient was sent here to the emergency department for rule out of DVT. Ultrasound results are negative for DVT or findings of his previous superficial thrombus. I encourage patient to notify his surgeon's office as he was instructed to stop his anticoagulation therapy on the eighth for his procedure on the . I encouraged him to reach out to the office to make them aware he had been evaluated with negative ultrasound results. Patient verbalizes understanding and agreement to treatment plan. Differential Diagnosis Unlikely herpes zoster, gout, cellulitis or deep venous thrombosis of upper extremity Lab Data Radiology Impressions Venous Duplex 02/06/23 16:08 IMPRESSION: No evidence of deep vein thrombosis. All radiology interpretation(s) finalized by discharge Discharge Plan Discharge Patient Disposition: Home Clinical Impression: H/O blood clots, Chronic anticoagulation Condition: Stable Prescriptions: No Action (DME) Left shoulder immobilizer See Rx Instructions .Route .MEDSUPPLY Qty: 1 0RF Rx Instructions: As directed (DME) Bone Growth Stimulator See Rx Instructions .Route .MEDSUPPLY Qty: 1 0RF Rx Instructions: As directed Eliquis 2.5 mg tablet 2.5 mg PO BID Qty: 60 2RF hydrocodone-acetaminophen 5-325 mg tablet 1 tab PO TID PRN (Reason: pain) 7 Days Qty: 21 0RF Discharge Orders: Discharge ED (Routine); Ordered 02/06/23 Ordered By: Kenzie Spann Referrals: Emilia Menchaca FNP [Primary Care Provider] - Discharge Diet: Usual diet Discharge Activity: Increase activity as tolerated Activity Restrictions/Additional Instructions: Ultrasound today reveals no findings of any type of deep or superficial clot. Please notify your surgeon to make them aware so they may choose when to have you stop your anticoagulation therapy prior to surgery. Sign Out Sign Out Data: Patient Sign Out occurred on 02/06/23 at 17:05. Patient's care was discussed, and care was transferred from MALACHI Herrera to MALACHI Lackey. Coding Level of Care Code ED Welfare Project Manager for Jamaal Mcintosh
[2023-02-06 15:34] VITALS: BP 124/71; PULSE 87; RESP 18; TEMP 36.8; BMI 22.4
--- NOTE | 2023-02-06 16:08 | USR_ITS ---
PROCEDURE INFORMATION: Exam: US Duplex Left Upper Extremity Veins, Limited Exam date and time: 02/06/2023 4:52 PM Age: 47 years old Clinical indication: Pain; Arm, upper; Left; Prior surgery; Surgery date: 1-6 months; Surgery type: Shoulder; Additional info: Pain, previous svt? , Recent fracture/injury TECHNIQUE: Imaging protocol: Real-time duplex ultrasound of the left extremity with 2-D durand scale, color Doppler flow and spectral waveform analysis including responses to compression and other maneuvers (when performed) with image documentation. Limited exam focused on the left upper extremity veins. COMPARISON: CT shoulder LT wo con* [id number] 12/28/2022 4:09 PM FINDINGS: Left deep veins: Unremarkable. Axillary and brachial veins are patent throughout without thrombus. Normal Doppler waveforms. Normal compressibility and/or augmentation response. Visualized internal jugular and subclavian veins are patent. Superficial veins: Visualized basilic vein is patent without thrombus. Cephalic vein not definitively identified on exam. Soft tissues: Unremarkable. US/[place] [id number] IMPRESSION: No evidence of deep vein thrombosis.
[2023-02-06 16:13] VITALS: BP 108/68; PULSE 85; RESP 14; O2SAT 98; O2SAT 99
[2023-02-06 17:41] VITALS: BP 102/66; PULSE 77; PULSE 80; RESP 16; RESP 17; O2SAT 99
== END 2023-02-06 17:45 | disposition home or self-care (01) ==
PROVIDERS: Emergency Provider Physician Assistant; PCP Nurse Practitioner Family
DX: M79.602 Pain in left arm (principal); D68.318 Other hemorrhagic disorder due to intrinsic circulating anticoagulants, antibodies, or inhibitors; Z79.01 Long term (current) use of anticoagulants; F17.220 Nicotine dependence, chewing tobacco, uncomplicated; Z86.73 Personal history of transient ischemic attack (TIA), and cerebral infarction without residual deficits; Z86.718 Personal history of other venous thrombosis and embolism
CPT/HCPCS: 93971; 99284

== ENCOUNTER → 2023-03-14 08:15 | Outpatient (BNVA) | payer BC, MEDICAID, SELFPAY | PROVIDERS: PCP Nurse Practitioner Family; Visit Provider Nurse Practitioner | DX: S42.11 Fracture of body of scapula; X58.XXXD Exposure to other specified factors, subsequent encounter; M54.12 Radiculopathy, cervical region; G89.29 Other chronic pain; I82.612 Acute embolism and thrombosis of superficial veins of left upper extremity | CPT/HCPCS: 72040; 72072; 73030 ==

== ENCOUNTER → 2023-03-30 13:21 | Outpatient (BNVA) | payer BC, MEDICAID, SELFPAY | PROVIDERS: PCP Nurse Practitioner Family; Visit Provider Nurse Practitioner Family | DX: M54.9 Dorsalgia, unspecified (principal) | CPT/HCPCS: 81000 ==

== ENCOUNTER 2023-04-06 14:11 | Outpatient (CLI) | payer BC, MEDICAID, SELFPAY ==
--- NOTE | 2023-04-06 15:15 | US_ITS ---
WS: [id number] RENAL ULTRASOUND HISTORY: R31.9 - Hematuria, unspecified COMPARISON: 12/07/2022 TECHNIQUE: 2-D and color Doppler imaging of the kidney submitted. Right kidney: 10.1 cm x 4.0 cm x 4.2 cm. Cortex: 0.5 cm Normal echogenicity with no hydronephrosis or mass. Left kidney: 10.0 cm x 4.3 cm x 4.0 cm. Cortex: 1.0 cm Normal echogenicity with no hydronephrosis or mass. Aorta: Normal. Urinary Bladder: Minimally distended. IMPRESSION: Normal renal ultrasound.
== END 2023-04-06 14:12 | disposition home or self-care (01) ==
LOC: RAD 14:12
PROVIDERS: PCP Nurse Practitioner Family; Visit Provider Nurse Practitioner Family
DX: R31.9 Hematuria, unspecified (principal)
CPT/HCPCS: 76770

== ENCOUNTER → 2023-05-18 10:27 | Outpatient (BNVA) | payer BC, MEDICAID, SELFPAY | PROVIDERS: PCP Nurse Practitioner Family; Visit Provider Nurse Practitioner | DX: S42.11 Fracture of body of scapula (principal); M19.012 Primary osteoarthritis, left shoulder; M54.12 Radiculopathy, cervical region; X58.XXXD Exposure to other specified factors, subsequent encounter | CPT/HCPCS: 73030 ==

== ENCOUNTER → 2023-09-24 08:35 | Outpatient (BNVA) | payer BC, MEDICAID, SELFPAY | PROVIDERS: PCP Nurse Practitioner Family; Visit Provider Nurse Practitioner Family | DX: Z13.220 Encounter for screening for lipoid disorders (principal); R53.83 Other fatigue | CPT/HCPCS: 80053; 80061; 85025 ==

== ENCOUNTER → 2023-09-25 09:04 | Outpatient (BNVA) | payer BC, MEDICAID, SELFPAY | PROVIDERS: PCP Nurse Practitioner Family; Visit Provider Nurse Practitioner Family | DX: R73.09 Other abnormal glucose (principal) | CPT/HCPCS: 83036 ==

== ENCOUNTER 2023-12-17 05:53 | Day surgery (SDC) | payer BC, MEDICAID, SELFPAY ==
[2023-12-17 06:14] VITALS: BP 127/74; PULSE 89; RESP 18; TEMP 36.7; O2SAT 99; BMI 23.7
[2023-12-17] MEDS: sodium chloride 0.9% 1,000 ML 30 ML IV (06:26)
--- NOTE | 2023-12-17 06:49 | PM.HP ---
Providers/Chief Complaint Primary Care Provider: TATE Lawton Chief Complaint: K21.9, Z12.11 History of Present Illness Rios Moreno is a 48 year old male Review of Systems General: Reports: 10 or more systems reviewed and unremarkable except in HPI and below Medications/Allergies Home Medications Medication Instructions Recorded Confirmed Last Taken Type Bone Growth Stimulator #1 ea 01/05/23 10/19/23 Unknown Rx apixaban 2.5 mg tablet (Eliquis) 2.5 mg PO BID #60 tabs 09/24/23 12/13/23 12/14/23 Rx pantoprazole 40 mg tablet,delayed 40 mg PO BID 6 weeks #84 tabs 10/15/23 12/13/23 12/14/23 Rx release (Protonix) Allergies Allergy/AdvReac Type Severity Reaction Status Date / Time topiramate [From Topamax] Allergy Unknown Verified 10/19/23 10:59 PFSH Acute PFSH: Medical History History of peptic ulcer disease Primary osteoarthritis, left shoulder Chronic radicular cervical pain Fracture of left scapular body with delayed healing Complex regional pain syndrome I of upper limb Hx of nephrolithotomy with removal of calculi History of DVT (deep vein thrombosis) History of left shoulder fracture TIA (transient ischemic attack) x 4 History of gastric ulcer Surgical History H/O vagotomy History of partial gastrectomy History of appendectomy History of tonsillectomy and adenoidectomy Family History Mother Diabetes Chronic kidney disease (CKD) Grandfather Cancer Lung disease Father Heart disease CAD (coronary artery disease) Family/Other CAD (coronary artery disease) Diabetes Heart disease Stroke Grandmother Diabetes Stroke Denies family history of Clotting disorder Dementia Suicide Anesthesia complication Bleeding disorder Social History Smoking and tobacco/nicotine status: current every day tobacco/nicotine user smokeless tobacco Smokeless tobacco user: chewing tobacco Alcohol intake: never Substance/Drug Use: never Adopted: No Caregiver/support person: No Sexually active: Yes Do you think of yourself as: Straight/Heterosexual Current gender identity: Male Vitals/I&O/Wt Last Vital Signs Temp 98.1 F 12/17/23 06:14 Pulse 89 12/17/23 06:14 Resp 18 12/17/23 06:14 BP 127/74 12/17/23 06:14 Pulse Ox 99 12/17/23 06:14 O2 Del Method Room Air 12/17/23 06:14 Weight last 48 hrs Weight 185 lb A&P Assessment and plan (1) GERD (gastroesophageal reflux disease): (2) History of peptic ulcer disease: (3) History of partial gastrectomy: (4) H/O vagotomy: (5) Screen for colon cancer: Plan EGD and colonoscopy Attestations Medical Necessity Statement*: Home Coding Level of Care Code Acute Code for Chg Fwd Diagnoses GERD (gastroesophageal reflux disease) K21.9 History of peptic ulcer disease Z87.11 History of partial gastrectomy Z90.3 H/O vagotomy Z98.890 Screen for colon cancer Z12.11
--- NOTE | 2023-12-17 06:59 | ANES.PREANE2 ---
Pre-Anesthetic Assessment Height/Weight: Height 1.88 m Weight 83.915 kg Temp Pulse Resp BP Pulse Ox O2 Del Method 98.1 F 89 18 127/74 99 Room Air 12/17/23 06:14 12/17/23 06:14 12/17/23 06:14 12/17/23 06:14 12/17/23 06:14 12/17/23 06:14 Preop Diagnosis: GERD, screening Operation Date: 12/17/23 07:00 Proposed Procedures p EGD- 31982, 38035, G0105,K21.9, Z12.11(Not Applicable) - Jamie Kline DO s Colonoscopy(Not Applicable) - Jamie Kline DO Was Beta Leora taken within 24 hours: N/A Was Clonidine taken within 24 hours: N/A Last intake: Intake Last Liquid Date 12/16/23 Last Liquid Time 20:00 Last Solid Date 12/15/23 Last Solid Time 18:00 Social Tobacco chews Exam alert, oriented x 3, clear to auscultation bilaterally and regular rate & rhythm Airway Submandibular: within normal limits Cervical ROM: within normal limits Mallampati: Class II Dentition: false Comments: Comments: Lower plates History/ROS No significant history except as noted and No significant complaints Pulmonary Hx PE CV/HEM First degree AV block Hepatic None reported GI Gastroesophageal Reflux Disease Metabolic None reported Musc/skel None reported Neuropsych None reported Anesthetic Plan ASA status: 2 Anesthesia: Anesthesia Evaluation and MAC Risk of > 500 ml blood loss (7ml/kg in children): No Medications/Allergies Home Medications Medication Instructions Recorded Confirmed Last Taken Type Bone Growth Stimulator #1 ea 01/05/23 10/19/23 Unknown Rx apixaban 2.5 mg tablet (Eliquis) 2.5 mg PO BID #60 tabs 09/24/23 12/13/23 12/14/23 Rx pantoprazole 40 mg tablet,delayed 40 mg PO BID 6 weeks #84 tabs 10/15/23 12/13/23 12/14/23 Rx release (Protonix) Allergies Allergy/AdvReac Type Severity Reaction Status Date / Time topiramate [From Topamax] Allergy Unknown Verified 10/19/23 10:59 Current Medications Generic Name Dose Route Start Last Admin Trade Name Freq PRN Reason Stop Dose Admin Sodium Chloride 1,000 mls @ 30 mls/hr 12/17/23 06:15 12/17/23 06:26 Sodium Chloride 0.9% IV 12/18/23 06:14 30 mls/hr .Q24H KURT Administration PFSH Anesthesia Medical History History of peptic ulcer disease Primary osteoarthritis, left shoulder Chronic radicular cervical pain Fracture of left scapular body with delayed healing Complex regional pain syndrome I of upper limb Hx of nephrolithotomy with removal of calculi History of DVT (deep vein thrombosis) History of left shoulder fracture TIA (transient ischemic attack) x 4 History of gastric ulcer Surgical History H/O vagotomy History of partial gastrectomy History of appendectomy History of tonsillectomy and adenoidectomy Family History Mother Diabetes Chronic kidney disease (CKD) Grandfather Cancer Lung disease Father Heart disease CAD (coronary artery disease) Family/Other CAD (coronary artery disease) Diabetes Heart disease Stroke Grandmother Diabetes Stroke Denies family history of Clotting disorder Dementia Suicide Anesthesia complication Bleeding disorder Social History Smoking and tobacco/nicotine status: current every day tobacco/nicotine user smokeless tobacco Smokeless tobacco user: chewing tobacco Alcohol intake: never Substance/Drug Use: never Adopted: No Caregiver/support person: No Sexually active: Yes Do you think of yourself as: Straight/Heterosexual Current gender identity: Male Data Anesthesia Cardiac Studies: Cardiac Event Monitor 09/22/21
[2023-12-17 07:39] VITALS: BP 94/69; PULSE 83; RESP 20; TEMP 36.1; O2SAT 94
--- NOTE | 2023-12-17 08:12 | ANE.PACU2 ---
Inpatient post-anesthesia follow up: Airway intact: Yes Vital signs: Temperature 97.0 F Pulse Rate 83 Respiratory Rate 20 Blood Pressure 94/69 Pulse Oximetry 94 Oxygen Delivery Me thod Nasal Cannula Oxygen Flow Rate 4 Fraction of Inspir ed Oxygen Hydration adequate: Yes Nausea and vomiting: No Pain level: 1 Mental status: Baseline
== END 2023-12-17 08:12 | disposition home or self-care (01) ==
PROVIDERS: PCP Nurse Practitioner Family; Visit Provider Surgery
PROC: 0DJ08ZZ Inspection of Upper Intestinal Tract, Via Natural or Artificial Opening Endoscopic (ICD-10-PCS; CPT 43235; principal; 2023-12-17 07:00)
PROC: 0DJD8ZZ Inspection of Lower Intestinal Tract, Via Natural or Artificial Opening Endoscopic (ICD-10-PCS; CPT 45378; 2023-12-17 07:00)
DX: Z12.11 Encounter for screening for malignant neoplasm of colon (principal); D12.3 Benign neoplasm of transverse colon; K21.9 Gastro-esophageal reflux disease without esophagitis; Z87.11 Personal history of peptic ulcer disease; Z86.718 Personal history of other venous thrombosis and embolism; Z86.73 Personal history of transient ischemic attack (TIA), and cerebral infarction without residual deficits; F17.220 Nicotine dependence, chewing tobacco, uncomplicated
CPT/HCPCS: 43239; 45385; 88305; J2704; J7030

== ENCOUNTER 2024-01-28 07:07 | Outpatient (CLI) | payer BC, MEDICAID, SELFPAY ==
--- NOTE | 2024-01-28 07:20 | IR_ITS ---
WS: [id number] SHOULDER ARTHROGRAM LEFT Fluoroscopic guided left shoulder arthrogram CLINICAL INFORMATION: osteoarthritis left shoulder PROCEDURE: The procedure including risks, benefits and complications were discussed with the patient, who agreed to proceed. Using sterile technique, the patient was prepped and draped in the usual ster ile fashion. After 1% lidocaine injection using fluoroscopic guidance, a 22-gauge spinal needle was a dvanced into the glenohumeral joint. Approximately 13 ml of a solution containing 10 ml normal saline , 5 ml Omnipaque 240, 5 ml 1% lidocaine, and 0.1 ml gadolinium was administered. No immediate complic ations. FLUOROSCOPY TIME: 1min [id number] # of spot films: 2 IR/IR arthrogram shoulderLT [id number] IMPRESSION: Uncomplicated fluoroscopic-guided left shoulder arthrogram. MRI to follow.
--- NOTE | 2024-01-28 07:20 | MR_ITS ---
WS: [id number] MRI LEFT SHOULDER ARTHROGRAM TECHNIQUE: Sagittal T2, coronal T1, T2 and proton density imaging. Axial gradient PDE imaging. Post a rthrogram images obtained. CLINICAL INFORMATION: left shoulder pain COMPARISON: MRI shoulder 2011 FINDINGS: Moderate to advanced degenerative arthritis AC joint. Slight subacromial spurring. Impingement distal supraspinatus. Small amount of subacromial subdeltoid fluid. Tendinopathy distal supraspinatus with small undersurface and bursal surface tears distally. Infraspi natus appears intact. Chronic thinning of the supraspinatus. Normal teres minor. Normal subscapularis . Biceps tendon appears intact within the bicipital groove. Normal intra-articular biceps tendon. Mod erate degenerative narrowing of the glenohumeral articulation. Biceps labral anchor appears intact. S mall SLAP tear with anterior to posterior extension. Biceps labral anchor appears intact. Full-thickness or near full-thickness tear involving the supraspinatus at the insertion best visualiz ed on the sagittal arthrogram images. Small amount of dissecting contrast. No significant tendon retr action. Rotator cuff is otherwise intact on the arthrogram imaging. MR/MR shoulder LT wo/w con [id number] IMPRESSION: 1. Moderate to advanced degenerative arthritis AC joint with downsloping of th e acromion with slight impingement distal supraspinatus. 2. Small full-thickness tear at the distal supraspinatus insertion with a smal l amount of dissecting contrast. No tendon retraction. This is best visualized on the sagittal arthrogram imaging. 3. Tendinopathy supraspinatus with small distal partial-thickness bursal and u ndersurface tears. 4. Small SLAP tear with slight anterior posterior extension. 5. Biceps labral anchor appears intact. 6. Biceps tendon appears intact within the bicipital groove. 7. Intra-articular biceps tendon appears intact.
[2024-01-28] MEDS: iohexol 240 mg/mL 50 mL Btl INTRATHECA (11:44)
== END 2024-01-28 07:08 | disposition home or self-care (01) ==
PROVIDERS: PCP Nurse Practitioner Family; Visit Provider Nurse Practitioner
DX: M19.012 Primary osteoarthritis, left shoulder (principal); M75.102 Unspecified rotator cuff tear or rupture of left shoulder, not specified as traumatic; S43.432A Superior glenoid labrum lesion of left shoulder, initial encounter; M75.92 Shoulder lesion, unspecified, left shoulder; X58.XXXA Exposure to other specified factors, initial encounter
CPT/HCPCS: 23350; 73223; 77002

== ENCOUNTER → 2024-02-11 09:28 | Outpatient (BNVA) | payer BC, MEDICAID, SELFPAY | PROVIDERS: PCP Nurse Practitioner Family; Visit Provider Nurse Practitioner | DX: M75.42 Impingement syndrome of left shoulder (principal); S46.812A Strain of other muscles, fascia and tendons at shoulder and upper arm level, left arm, initial encounter; X58.XXXA Exposure to other specified factors, initial encounter | CPT/HCPCS: 36415; 80053; 81003; 85025 ==

== ENCOUNTER 2024-04-15 10:03 | Day surgery (SDC) | payer BC, MEDICAID, SELFPAY ==
[2024-04-15] VITALS (9 sets, daily range): BP systolic 100–124; BP diastolic 64–78; PULSE 72–88; RESP 13–18; TEMP 36.2–36.3; O2SAT 95–100; BMI 25.7
[2024-04-15] MEDS: acetaminophen 1,000 MG/100 ML PIGGYBACK 400 MG IV (10:53)
[2024-04-15] MEDS: sodium chloride 0.9% 1,000 ML 30 ML IV (10:54)
[2024-04-15] MEDS: CELEcoxib 200 mg Capsule 400 MG PO (10:55)
[2024-04-15] MEDS: gabapentin 300 mg Capsule PO (10:55)
--- NOTE | 2024-04-15 10:55 | P.HPUD_ITS ---
Surgery/Procedure H&P Update DATE OF PROCEDURE: April 15, 2024 DATE H&P PERFORMED: 04/14/24 H&P UPDATE INFORMATION: I have reviewed H&P completed within last 30 days, I have examined patient prior to procedure, No changes to prior documentation and H&P is in [facility] EMR on date indicated PRIMARY INDICATION FOR PROCEDURE: MRI arthrogram of the left shoulder was obtained on January 28, 2024 here at [facility]. The report was dictated by Dr. Montrell Johansen MD. IMPRESSION: 1. Moderate to advanced degenerative arthritis AC joint with downsloping of the acromion with slight impingement distal supraspinatus. 2. Small full-thickness tear at the distal supraspinatus insertion with a small amount of dissecting contrast. No tendon retraction. This is best visualized on the sagittal arthrogram imaging. 3. Tendinopathy supraspinatus with small distal partial-thickness bursal and undersurface tears. 4. Small SLAP tear with slight anterior posterior extension. 5. Biceps labral anchor appears intact. 6. Biceps tendon appears intact within the bicipital groove. 7. Intra-articular biceps tendon appears intact. PLANNED PROCEDURE: Operation Date: 04/15/24 11:45 Proposed Procedures p Rotator Cuff Repair - Open(Left) - Ijeoma Saldivar MD s Distal Clavicle Resection(Left) - Ijeoma Saldivar MD Related Problem List Diagnoses (1) Impingement syndrome of left shoulder: (2) Traumatic tear of supraspinatus tendon of left shoulder: Qualifiers: Encounter type: initial encounter Qualified Code(s): S46.812A - Strain of other muscles, fascia and tendons at shoulder and upper arm level, left arm, initial encounter (3) Osteoarthritis of left acromioclavicular joint:
--- NOTE | 2024-04-15 11:23 | PC.NURSE ---
1109: time out performed. 30ml of .5% ropivicaine injected left shoulder using ultrasound guidance. Anaesthesia student Paresh BAUTISTA
--- NOTE | 2024-04-15 11:24 | ANES.PREANE2 ---
Pre-Anesthetic Assessment Height/Weight: Height 6 ft 2 in Weight 200 lb O2 Del Method Room Air 04/15/24 10:44 Preop Diagnosis: rotator cuff tear Operation Date: 04/15/24 11:45 Proposed Procedures p Rotator Cuff Repair - Open(Left) - Ijeoma Saldivar MD s Distal Clavicle Resection(Left) - Ijeoma Saldivar MD Was Beta Leora taken within 24 hours: N/A Was Clonidine taken within 24 hours: N/A Last intake: Intake Last Liquid Date 04/14/24 Last Liquid Time 21:30 Last Solid Date 04/14/24 Last Solid Time 21:30 Social Tobacco and No alcohol Exam alert, oriented x 3, clear to auscultation bilaterally and regular rate & rhythm Airway Submandibular: within normal limits Cervical ROM: within normal limits Mallampati: Class II Comments: Comments: edentulous Anesthetic Plan ASA status: 3 Anesthesia: General and Regional (specify below) Other: No prior issues with anesthesia NPO since yesterday Patient has a history of complex regional pain syndrome in this extremity. Has been treated with gabapentin. Current smoker Prior DVT on chronic Eliquis. Labs reviewed and acceptable for procedure Plan for general anesthetic with preop nerve block Medications/Allergies Home Medications ?Medication ?Instructions ?Recorded ?Confirmed ?Last Taken ?Type Bone Growth Stimulator #1 ea 01/05/23 04/14/24 Unknown Rx polyethylene glycol 3350 17 17 g PO DAILY 1 month #510 grams 12/31/23 04/14/24 Unknown Rx gram/dose oral powder (Miralax) apixaban 2.5 mg tablet (Eliquis) 2.5 mg PO BID #60 tabs 01/08/24 04/14/24 04/06/24 Rx chlorzoxazone 500 mg tablet 250 mg (1/2 x 500 mg) PO TID PRN 04/14/24 04/15/24 04/14/24 Rx muscle spasm #21 tabs hydrocodone 5 mg-acetaminophen 325 1 tab PO Q4H PRN pain 7 days #20 04/15/24 Unknown Rx mg tablet tabs Allergies Allergy/AdvReac Type Severity Reaction Status Date / Time topiramate (From Topamax) Allergy Unknown Verified 04/14/24 15:31 Current Medications Generic Name Dose Route Start Last Admin Trade Name Freq PRN Reason Stop Dose Admin Sodium Chloride 1,000 mls @ 30 mls/hr 02/11/25 10:30 04/15/24 10:54 Sodium Chloride 0.9% IV 04/16/24 10:29 30 mls/hr .Q24H KURT Administration PFSH Anesthesia Medical History History of peptic ulcer disease Primary osteoarthritis, left shoulder Chronic radicular cervical pain Fracture of left scapular body with delayed healing Complex regional pain syndrome I of upper limb Hx of nephrolithotomy with removal of calculi History of DVT (deep vein thrombosis) History of left shoulder fracture TIA (transient ischemic attack) x 4 History of gastric ulcer Surgical History H/O vagotomy History of appendectomy History of tonsillectomy and adenoidectomy Family History Mother Diabetes Chronic kidney disease (CKD) Grandfather Cancer Lung disease Father Heart disease CAD (coronary artery disease) Family/Other CAD (coronary artery disease) Diabetes Heart disease Stroke Grandmother Diabetes Stroke Denies family history of Clotting disorder Dementia Suicide Anesthesia complication Bleeding disorder Social History Smoking and tobacco/nicotine status: current every day tobacco/nicotine user smokeless tobacco Smokeless tobacco user: chewing tobacco Alcohol intake: never Substance/Drug Use: never Adopted: No Caregiver/support person: No Marital status: Sexually active: Yes Do you think of yourself as: Straight/Heterosexual Current gender identity: Male Data Anesthesia Cardiac Studies: Cardiac Event Monitor 09/22/21
--- NOTE | 2024-04-15 11:33 | ANES.PROC ---
Anesthesia Procedures Procedure/Date: 04/15/24 Nerve Block ^: Nerve Block 1: Main Anesthesia: other (100 mcg fentanyl and 2 mg Versed) Time Out Performed: Yes Consent: requested by attending/covering physician and from patient Nerve block location: interscalene Anesthesia monitors applied: pulse oximetry, EKG, BP cuff and oxygen Nerve block position: supine Anesthetic Used: ropivicaine 0.5% Amount of anesthesia used (mL): 30 Ultrasound used to: recognize landmarks Nerve Stimulator Used?: Yes Interscalene/Femoral BLK: other needle (pjunk 4inch) Injection: neg aspiration of heme Patient Tolerated Procedure: well Complications: none Additional Comments: Decadron 4 mg added to block
[2024-04-15] MEDS: ceFAZolin 2,000 mg SDV 2000 MG IVP (11:34)
[2024-04-15] MEDS: ceFAZolin 1,000 mg SDV 1000 MG IRRIGATION (12:14)
--- NOTE | 2024-04-15 13:49 | PM.OP ---
Operative Report Date of procedure: April 15, 2024 Pre-op diagnosis: Left shoulder impingement with traumatic rotator cuff tear and acromioclavicular joint osteoarthritis Post-op diagnosis: Left shoulder impingement with traumatic rotator cuff tear and acromioclavicular joint osteoarthritis Post-op findings: Severe degenerative osteoarthritis of the left acromioclavicular joint with impingement and small insertional site tear of the supraspinatus tendon. Procedure done: Left shoulder rotator cuff tear with acromioclavicular joint osteoarthritis and impingement Implants: None Specimens removed/disposition: None Pathology: None Surgeon: Ijeoma Saldivar MD Strip Cutter: TATE Mejia?TUNG, who services were required for retraction, positioning of the humeral head, and closure. Estimated blood loss (mL): 20 IV fluids (mL): 1,000 Urine output (mL): 0 (No Nolasco) Complications: None Findings: Insertional site supraspinatus tendon tear with significant inflammation of the bursa and very large arthritic acromioclavicular joint Condition: stable Disposition: PACU (Then return to same-day surgery for discharge to home) Brief History: This 48-year-old gentleman presents today for left shoulder rotator cuff repair with acromioplasty and distal clavicle resection. The patient presented initially with a scapular fracture. This is healed, but he still has pain in that area. Today, the patient had MRI findings consistent with rotator cuff tear as well as significant degenerative osteoarthritis of the acromioclavicular joint and impingement upon the rotator cuff from the distal clavicle as well as the acromion both at the acromioclavicular joint and laterally. Patient was seen in the preop holding area. Questions were answered. Consents were reviewed. Procedure: The patient was brought to the operating theater and underwent general intubated anesthesia, ASA 3, with preoperative interscalene block. The patient was placed in a beachchair position and subsequently the left upper extremity was prepped and draped in the usual fashion utilizing DuraPrep. The arm was draped free. A surgical pause was performed prior to commencement of the surgical procedure. At the time of the surgical pause, we confirmed the site and side of surgery as well as administration of appropriate preoperative antibiotics Ancef 2 g. MRI was also reviewed at that time. Following the surgical pause, an incision was made at approximately the level of the acromioclavicular joint extending across the anterolateral corner of the acromion and distally as necessary. Care was taken to avoid injury to the axillary nerve by limiting the distal extent of the incision. Dissection continued through skin and soft tissues using a scalpel. Hemostasis was obtained using electrocautery. Soft tissues were elevated off the acromion as well as the acromioclavicular navicular joint. The acromioclavicular joint was exposed. A saw was then used to resect the distal clavicle without difficulty. The undersurface of the clavicle was palpated and was slightly further debrided. A power rasp was used to further smooth the area. When this was felt to be adequately resected, the wound was irrigated. Soft tissues were then elevated off the undersurface of the acromion with dissection into the deltoid far enough to allow access to the subacromial space. This was evaluated. There was downsloping of the lateral acromion and this area was noted to be quite rough. There was also copious bursitis with thickened bursa. This was excised. Following excision of this area, there was noted to be significant impingement. An acromioplasty was then accomplished using a combination of a saw and a power rasp. With this, we were able to remove compression caused by the acromion. The rotator cuff was then evaluated to look for tears. Further bursectomy was accomplished. There was noted to be a rotator cuff tear at the insertion point of the supraspinatus on the humeral head. The rotator cuff tear was evaluated. This tear was noted to be a small circular type tear. Repair was accomplished using 0 Ethibond in interrupted fashion. After the rotator cuff had been thus addressed, the shoulder was placed through further range of motion to assure there was no further evidence of rotator cuff tear. Attention was then directed to closure. The wound was irrigated and closure was accomplished with 0 Vicryl in the capsular tissues overlying the acromioclavicular joint area as well as over the acromion and down into the deltoid muscle. 2-0 Monocryl was used to close the subcutaneous tissues followed by 3-0 Monocryl subcuticular closure. This was followed by Dermabond, Steri-Strips, and OpSite. The patient was placed in a sling and was returned to the recovery room in satisfactory condition. The patient will be discharged to home to follow-up with me in the office as scheduled. There were no complications and no specimens. Related Problem List Diagnoses (1) Traumatic tear of supraspinatus tendon of left shoulder: (2) Impingement syndrome of left shoulder: (3) Osteoarthritis of left acromioclavicular joint:
--- NOTE | 2024-04-15 14:40 | ANE.PACU2 ---
Inpatient post-anesthesia follow up: Airway intact: Yes Vital signs: Temperature 97.4 F Pulse Rate 84 Respiratory Rate 18 Blood Pressure 124/78 Pulse Oximetry 96 Oxygen Delivery Me thod Room Air Oxygen Flow Rate 8 Fraction of Inspir ed Oxygen Hydration adequate: Yes Nausea and vomiting: No Pain level: 1 Mental status: Baseline
== END 2024-04-15 14:40 | disposition home or self-care (01) ==
PROVIDERS: PCP Nurse Practitioner Family; Visit Provider Specialist
PROC: (CPT 23410; principal; 2024-04-15 11:45)
PROC: (CPT 23120; 2024-04-15 11:45)
DX: S46.012A Strain of muscle(s) and tendon(s) of the rotator cuff of left shoulder, initial encounter (principal); M75.42 Impingement syndrome of left shoulder; S42.11 Fracture of body of scapula; M19.012 Primary osteoarthritis, left shoulder; Z88.8 Allergy status to other drugs, medicaments and biological substances; Z86.73 Personal history of transient ischemic attack (TIA), and cerebral infarction without residual deficits; Z87.11 Personal history of peptic ulcer disease; F17.220 Nicotine dependence, chewing tobacco, uncomplicated; Z79.01 Long term (current) use of anticoagulants; Z86.718 Personal history of other venous thrombosis and embolism; Z79.899 Other long term (current) drug therapy
CPT/HCPCS: 23410; 23120; J0131; J0690; J1100; J2250; J2371; J2405; J2704; J3010; J3490; J7030

== ENCOUNTER → 2024-05-20 09:03 | Outpatient (BNVA) | payer BC, MEDICAID, SELFPAY | PROVIDERS: PCP Nurse Practitioner Family; Visit Provider Orthopaedic Surgery | DX: M54.12 Radiculopathy, cervical region (principal) | CPT/HCPCS: 72050 ==

== ENCOUNTER → 2024-06-23 09:56 | Outpatient (BNVA) | payer BC, MEDICAID, SELFPAY | PROVIDERS: PCP Nurse Practitioner Family; Visit Provider Nurse Practitioner Family | DX: E78.5 Hyperlipidemia, unspecified (principal); I10 Essential (primary) hypertension; R53.83 Other fatigue; M54.12 Radiculopathy, cervical region; Z79.01 Long term (current) use of anticoagulants | CPT/HCPCS: 80053; 80061; 85025 ==

== ENCOUNTER 2024-08-14 05:59 | Outpatient (CLI) | payer BC, MEDICAID, SELFPAY ==
--- NOTE | 2024-08-14 06:30 | MR_ITS ---
WS: [id number] MRI CERVICAL SPINE NONCONTRAST TECHNIQUE: Sagittal T1, T2 and STIR imaging. Axial T2, gradient, and fiesta imaging. CLINICAL INFORMATION: Neck pain COMPARISON: None. FINDINGS: Straightening of the normal cervical lordosis. Incidental hemangioma T1. No high-grade central canal stenosis. Cord signal is normal. C2-C3: Normal. C3-C4: Mild facet arthropathy. Spinal canal and foramen are patent. C4-C5: Mild facet arthropathy. Spinal canal and foramen are patent. C5-C6: Mild facet arthropathy. Spinal canal and foramen are patent. C6-C7: Mild facet arthropathy. Spinal canal and foramen are patent. C7-T1: Normal. Visualized brain stem structures: Normal. Prevertebral soft tissues: Normal. MR/MR cervical spin wo con* [id number] IMPRESSION: 1. Straightening of the normal cervical lordosis. 2. Incidental hemangioma T1. 3. Cord signal is normal. 4. No significant central canal stenosis. 5. Mild facet arthropathy throughout the cervical spine.
== END 2024-08-14 06:00 | disposition home or self-care (01) ==
PROVIDERS: PCP Nurse Practitioner Family; Visit Provider Orthopaedic Surgery
DX: M54.2 Cervicalgia (principal); D18.09 Hemangioma of other sites; M47.892 Other spondylosis, cervical region
CPT/HCPCS: 72141

== ENCOUNTER 2024-10-11 19:28 | Emergency (ER) | payer BC, MEDICAID, SELFPAY ==
--- NOTE | 2024-10-11 19:35 | XRR_ITS ---
PROCEDURE INFORMATION: Exam: XR Chest Exam date and time: 10/11/2024 7:42 PM Age: 49 years old Clinical indication: Pain; Chest pressure; Additional info: Chest pain TECHNIQUE: Imaging protocol: Radiologic exam of the chest. Views: 1 view. COMPARISON: CT chest w con* [id number] 08/21/2022 2:13 PM FINDINGS: Lungs: Unremarkable. No consolidation. Pleural spaces: Unremarkable. No pleural effusion. No pneumothorax. Heart/Mediastinum: Unremarkable. No cardiomegaly. Bones/joints: Moderate degenerative changes of AC joint with probable chronic mild left AC joint separation. Other findings: Single view. XR/XR chest 1V portable [id number] IMPRESSION: No definite acute infiltrate or effusion.
--- NOTE | 2024-10-11 19:35 | ECG_ITS ---
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 Measurements Intervals [place] Rate: 85 P: 78 [place]: 171 QRS: 73 QRSD: 88 T: 66 QT: 332 QTc: 395 Interpretive Statements SINUS RHYTHM WITH SINUS ARRHYTHMIA Compared to ECG 10/04/2016 18:59:31 Sinus tachycardia no longer present Electronically Signed On 10-14-2024 08:18:07 CDT by Jaclyn Puentes M.D. [email or web address]
[2024-10-11 19:40] VITALS: BP 104/71; PULSE 94; RESP 18; TEMP 36.6; O2SAT 99
[2024-10-11 19:51] LABS: Hematocrit 40.7 % (37-53); Hemoglobin 14.10 g/dL (11.27-16.99); Mean Corpuscular HGB Conc 34.6 g/dL (30-55); Mean Corpuscular Hemoglobin 30.1 pg (27-33); Mean Corpuscular Volume 87.0 fl (82-101); Nucleated Red Blood Cells % 0 %; Platelet Count 218 10^3/cmm (157-399); Red Blood Count 4.68 10^6/uL (3.85-5.65); White Blood Count 6.55 10^3/uL (3.29-11.43)
--- NOTE | 2024-10-11 19:56 | CTR_ITS ---
PROCEDURE INFORMATION: Exam: CT Head Without Contrast Exam date and time: 10/11/2024 8:20 PM Age: 49 years old Clinical indication: Pain; Headache; PICKARD with hypertension; Additional info: Head pressure, chest pain TECHNIQUE: Imaging protocol: Computed tomography of the head without contrast. Radiation optimization: All CT scans at this facility use at least one of these dose optimization techniques: automated exposure control; mA and/or kV adjustment per patient size (includes targeted exams where dose is matched to clinical indication); or iterative reconstruction. COMPARISON: CT head wo con* [id number] 08/21/2022 2:08 PM RADIATION DOSE METRICS: Total DLP (mGy-cm): 368.19 FINDINGS: Brain: Normal. No hemorrhage. Unremarkable white matter. No mass effect. Cerebral ventricles: No ventriculomegaly. Paranasal sinuses: Visualized sinuses are unremarkable. No fluid levels. Mastoid air cells: Visualized mastoid air cells are well aerated. Bones: Unremarkable. No acute fracture. Soft tissues: Unremarkable. CT/CT head wo con* [id number] IMPRESSION: No acute intracranial abnormality.
--- NOTE | 2024-10-11 19:57 | CTR_ITS ---
PROCEDURE INFORMATION: Exam: CTA Chest With Contrast Exam date and time: 10/11/2024 8:23 PM Age: 49 years old Clinical indication: Chest pressure; C/O chest pain. History of pe. ; Additional info: Chest pain HX pe TECHNIQUE: Imaging protocol: Computed tomographic angiography of the chest with contrast. Exam focused on the arteries. 3D rendering (Not supervised by radiologist): MIP and/or 3D reconstructed images were created by the technologist. Radiation optimization: All CT scans at this facility use at least one of these dose optimization techniques: automated exposure control; mA and/or kV adjustment per patient size (includes targeted exams where dose is matched to clinical indication); or iterative reconstruction. Contrast material: OMNI 350; Contrast volume: 75 ml; Contrast route: INTRAVENOUS (IV); COMPARISON: CT chest w con* [id number] 08/21/2022 2:13 PM RADIATION DOSE METRICS: Total DLP (mGy-cm): 368.19 FINDINGS: Pulmonary arteries: Normal. No pulmonary emboli. Aorta: Aortic and coronary atherosclerosis. Lungs: Unremarkable. No consolidation. No masses. Pleural spaces: Unremarkable. No pneumothorax. No pleural effusion. Heart: Unremarkable. No cardiomegaly. No pericardial effusion. Esophagus: Mild thickening of the distal esophagus, nonspecific although possibly due to collapse. Lymph nodes: Unremarkable. No enlarged lymph nodes. Spleen: Small splenule. Granulomata within the spleen. Kidneys: Nonspecific although commonly benign renal cysts. Bones/joints: Unremarkable. No acute fracture. Soft tissues: Unremarkable. CT/CT angio chest PE protcl [id number] IMPRESSION: Aortic and coronary atherosclerosis. No definitive radiographic evidence of significant pulmonary embolism. No acute infiltrate or effusion. COMMENTS: Consistent with the [employer]'s Incidental Findings Committee white paper (J [employer] 2018): Any incidental renal lesion less than 1 cm or classified as too small to characterize, or any incidental cystic renal lesion characterized as simple-appearing, is likely benign. No follow-up imaging is recommended for these lesions per consensus recommendations based on imaging criteria.
--- NOTE | 2024-10-11 20:00 | W.ED.CHESTPA ---
HPI - Chest Pain General: Chief Complaint: Chest Pain Stated Complaint: chest pain Time Seen by Provider: 10/11/24 19:34 History of Present Illness: 49-year-old male patient with a history of DVT and PE. He has no history of coronary disease known. He is presenting with chest discomfort. He states that he was helping his son get a espinal out of an ATV, and used a hammer a couple of times. He was bent over. When he stood up, he felt a monk from his head up his neck into his head. He had pressure in his head. It happened a second time. He drank some water with some improvement. He went to the EMS facility, and had an EKG there. He was still experiencing chest discomfort. He still is experiencing a dull chest discomfort pushing into his chest radiating into his back currently. His head pressure is gone. He has been compliant with his Eliquis he says. He has not had a cough. He is not overly short of breath. Related Data Previous Rx's ?Medication ?Instructions ?Recorded polyethylene glycol 3350 17 17 g PO DAILY 1 month #510 grams 12/31/23 gram/dose oral powder (Miralax) nikky kit #1 ea 06/20/24 apixaban 2.5 mg tablet (Eliquis) 2.5 mg PO BID #60 tabs 07/30/24 cyclobenzaprine 10 mg tablet 10 mg PO TID PRN muscle spasm 10 07/30/24 days #30 tabs diazepam 5 mg tablet (Valium) 5 mg PO BID PRN anxiety #2 tabs 08/05/24 Allergies Allergy/AdvReac Type Severity Reaction Status Date / Time topiramate (From Topamax) Allergy Unknown Verified 08/01/24 09:26 [facility] ED [facility]: Medical History (Updated 10/11/24 @ 22:57 by Stan Avery DO) Cervical radicular pain History of peptic ulcer disease Primary osteoarthritis, left shoulder Chronic radicular cervical pain Fracture of left scapular body with delayed healing Complex regional pain syndrome I of upper limb Hx of nephrolithotomy with removal of calculi History of DVT (deep vein thrombosis) History of left shoulder fracture TIA (transient ischemic attack) x 4 History of gastric ulcer Surgical History H/O vagotomy History of appendectomy History of tonsillectomy and adenoidectomy Family History Mother Diabetes Chronic kidney disease (CKD) Grandfather Cancer Lung disease Father Heart disease CAD (coronary artery disease) Family/Other CAD (coronary artery disease) Diabetes Heart disease Stroke Grandmother Diabetes Stroke Denies family history of Clotting disorder Dementia Suicide Anesthesia complication Bleeding disorder Social History Smoking and tobacco/nicotine status: former use of tobacco/nicotine Alcohol intake: never Substance/Drug Use: never Adopted: No Caregiver/support person: No Marital status: Sexually active: Yes Do you think of yourself as: Straight/Heterosexual Current gender identity: Male Physical Exam Const: COMMON NORMALS: no acute distress GENERAL APPEARANCE: cooperative; not ill appearing and not frail appearing HENMT: COMMON NORMALS: normocephalic, atraumatic and Normal external nose present HEAD & SCALP: normocephalic and atraumatic FACE & SINUS: normal facial exam and face symmetric NOSE: Normal external nose present Eye: COMMON NORMALS: Equal, round and reactive pupils present and EOMs intact bilaterally PUPIL: Yes Equal, round and reactive pupils present Neck/C-Spine: GENERAL: Yes trachea midline Chest: CHEST: Yes Symmetrical chest wall rise Resp: COMMON NORMALS: normal respiratory effort, No retractions, No use of accessory muscles and clear to auscultation bilaterally AUSCULTATION: clear to auscultation bilaterally Cardio: COMMON NORMALS: regular rate and regular rhythm RATE: regular rate RHYTHM: regular rhythm GI: COMMON NORMALS: Normal to inspection, nondistended, normoactive bowel sounds present Extremity: COMMON NORMALS: no pedal edema Neuro: MAURICIO COMA SCALE: document GCS findings Mills coma scale eye opening: Spontaneous Mauricio coma scale verbal response: Orientated Mauricio coma scale motor response: Obey commands Mills coma scale total score: 15 SENSORY EXAM: Yes extremities (intact) Psych: COMMON NORMALS: speech normal SPEECH: Yes normal speech Skin: COMMON NORMALS: no rashes or lesions noted GENERAL SKIN EXAM: no rashes or lesions noted Course Vital Signs: Vital signs: Vital Signs Temperature 97.8 F 10/11/24 19:40 Pulse Rate 87 10/12/24 00:03 Respiratory Rate 18 10/12/24 00:03 Blood Pressure 129/87 10/12/24 00:03 Pulse Oximetry 99 10/12/24 00:03 MDM - Chest Pain Medical Decision Making His EKG shows a sinus rhythm with sinus arrhythmia. The [place] and intervals are normal. There are no acute ST wave changes. His chest x-ray is negative. CBC is normal. BMP shows a creatinine of 1.5. Is otherwise not remarkable. CT of the head, performed because of head pressure is negative. CTA of the chest shows no pulmonary embolus, no dissection, there are coronary calcifications. Troponin and BNP are both nondetectable. Troponin remains nondetectable at 2 hours. Patient's pain is improved. Will allow discharge. Lab Data 10/11/24 19:38 10/11/24 19:38 Radiology Impressions Chest X-Ray 10/11/24 19:35 IMPRESSION: No definite acute infiltrate or effusion. Head CT 10/11/24 19:56 IMPRESSION: No acute intracranial abnormality. Chest CTA 10/11/24 19:57 IMPRESSION: Aortic and coronary atherosclerosis. No definitive radiographic evidence of significant pulmonary embolism. No acute infiltrate or effusion. COMMENTS: Consistent with the [employer]'s Incidental Findings Committee white paper (J Am [employer]iol 2018): Any incidental renal lesion less than 1 cm or classified as too small to characterize, or any incidental cystic renal lesion characterized as simple-appearing, is likely benign. No follow-up imaging is recommended for these lesions per consensus recommendations based on imaging criteria. Laboratory Results WBC 6.55 10^3/uL (3.29-11.43) 10/11/24 19:38 RBC 4.68 10^6/uL (3.85-5.65) 10/11/24 19:38 Hgb 14.10 g/dL (11.27-16.99) 10/11/24 19:38 Hct 40.7 % (37-53) 10/11/24 19:38 MCV 87.0 fl (82-101) 10/11/24 19:38 MCH 30.1 pg (27-33) 10/11/24 19:38 MCHC 34.6 g/dL (30-55) 10/11/24 19:38 RDW 12.2 % (12.1-15.1) 10/11/24 19:38 Plt Count 218 10^3/cmm (157-399) 10/11/24 19:38 MPV 10.6 fL (7.4-10.4) H 10/11/24 19:38 Neut % (Auto) 69.2 % 10/11/24 19:38 Lymph % (Auto) 23.5 % 10/11/24 19:38 Bath % (Auto) 5.5 % 10/11/24 19:38 Eos % (Auto) 1.1 % 10/11/24 19:38 Baso % (Auto) 0.5 % 10/11/24 19:38 Neut # (Auto) 4.54 10^3/uL (1.8-7.7) 10/11/24 19:38 Lymph # (Auto) 1.5 10^3/uL (0.8-4.8) 10/11/24 19:38 Bath # (Auto) 0.4 10^3/uL (0.2-0.9) 10/11/24 19:38 Eos # (Auto) 0.1 10^3/uL (0.0-0.8) 10/11/24 19:38 Baso # (Auto) 0.0 10^3/uL (0.0-0.1) 10/11/24 19:38 Nucleated RBC % (auto) 0 % 10/11/24 19:38 Nucleated RBCs # 0.0 /100WBC 10/11/24 19:38 Sodium 138 mmol/L (136-145) 10/11/24 19:38 Potassium 4.5 mmol/L (3.5-5.1) 10/11/24 19:38 Chloride 105 mmol/L (98-107) 10/11/24 19:38 Carbon Dioxide 19 mmol/L (22-29) L 10/11/24 19:38 Anion Gap 18.5 (5-19) 10/11/24 19:38 BUN 17 mg/dL (6-20) 10/11/24 19:38 Creatinine 1.5 mg/dL (0.7-1.2) H 10/11/24 19:38 GFR Calculation 49.7 mL/min (90-130) L 10/11/24 19:38 Glucose 96 mg/dL (65-115) 10/11/24 19:38 Calculated Osmolality 287 mOsm/kg (285-295) 10/11/24 19:38 Calcium 9.0 mg/dL (8.5-10.5) 10/11/24 19:38 Total Bilirubin 0.7 mg/dL (0.15-1.2) 10/11/24 19:38 AST 18 U/L (0-40) 10/11/24 19:38 ALT 17 U/L (0-41) 10/11/24 19:38 Alkaline Phosphatase 73 U/L (40-130) 10/11/24 19:38 Troponin T Baseline < 6 ng/L (0-15) 10/11/24 19:38 Troponin T 120 Minute < 6.0 ng/L (0-15) 10/11/24 21:39 Delta Troponin T 0 ABS# (0-10) 10/11/24 21:39 NT-Pro-B Natriuret Pep < 36 pg/mL (0-125) 10/11/24 19:38 Total Protein 7.0 g/dL (6.6-8.7) 10/11/24 19:38 Albumin 4.5 g/dL (3.5-5.2) 10/11/24 19:38 Globulin 2.5 g/dL (1.3-4.6) 10/11/24 19:38 All radiology interpretation(s) finalized by discharge Discharge Plan Discharge Patient Disposition: Home Clinical Impression: Chest pain Condition: Stable Prescriptions: No Action polyethylene glycol 3350 [Miralax] 17 gram/dose powder 17 g PO DAILY 30 Days Qty: 510 0RF diazepam [Valium] 5 mg tablet 5 mg PO BID PRN (Reason: anxiety) Qty: 2 0RF Rx Instructions: take one 45 mins before MRI and one right before MRI (DME) nikky kit See Rx Instructions .Route .MEDSUPPLY Qty: 1 0RF Rx Instructions: As directed.Order 99 days Eliquis 2.5 mg tablet 2.5 mg PO BID Qty: 60 1RF cyclobenzaprine 10 mg tablet 10 mg PO TID PRN (Reason: muscle spasm) 10 Days Qty: 30 0RF Discharge Orders: Discharge ED (Routine); Ordered 10/11/24 Ordered By: Stan Avery Referrals: Macomb,Emilia, HEMATOLOGY SPECIALIST [Primary Care Provider, Family Practice] - 1-3 days Patient Instructions: Chest Pain (ED), Opioid Safety, Pain Management, Patient Portal & Adali Instructions Activity Restrictions/Additional Instructions: Case management has been asked to set you up for an outpatient stress test. You should get a call from them next week to schedule. Return for worsening chest discomfort, any shortness of breath, other concerning symptoms. Monitor your heart rate and blood pressure at home if you can. Report numbers to your doctor. Call your doctor on Sunday for follow-up appointment. Stay sedentary and in a cool environment for at least the next 24 hours. Stay hydrated Print Language: Malaysian Coding Level of Care Code ED Early Interventionist for Jamaal Mcintosh
[2024-10-11 20:05] LABS: Troponin(5th) Baseline < 6 ng/L (0-15)
[2024-10-11 20:06] LABS: Slide Review Slide Review Perform
[2024-10-11 20:14] LABS: Alanine Aminotransferase 17 U/L (0-41); Albumin Level 4.5 g/dL (3.5-5.2); Alkaline Phosphatase 73 U/L (40-130); Blood Urea Nitrogen 17 mg/dL (6-20); Calcium 9.0 mg/dL (8.5-10.5); Carbon Dioxide 19 mmol/L (22-29); Chloride 105 mmol/L (98-107); Creatinine Clr Calc Pharmacy 71.2149; Globulin 2.5 g/dL (1.3-4.6); Glucose 96 mg/dL (65-115); NT Pro B Type Natriuretic Pept < 36 pg/mL (0-125); Osmolality Calculated 287 mOsm/kg (285-295); Sodium 138 mmol/L (136-145); Total Protein 7.0 g/dL (6.6-8.7)
[2024-10-11 20:19] LABS: Anion Gap 18.5 (5-19); Aspartate Amino Transferase 18 U/L (0-40); Potassium 4.5 mmol/L (3.5-5.1)
[2024-10-11] MEDS: iohexol 350 mg/mL 500 mL Btl (per mL) IV (20:22)
[2024-10-11] MEDS: ondansetron 2 mg/ML SDV 2 mL 4 MG IVP (20:45)
[2024-10-11] MEDS: morphine 4 mg/mL SDV 1 mL IVP (20:45)
[2024-10-11] MEDS: lidocaine 2% viscous 15 ML, aluminum-mag hydrox-simethicon 30 ML, sucralfate oral liq 1 GM PO (20:45)
[2024-10-11 20:46] VITALS: BP 121/87; PULSE 85; RESP 16; O2SAT 97
[2024-10-11 21:09] VITALS: BP 136/84; PULSE 78; RESP 16; O2SAT 98
--- NOTE | 2024-10-11 21:28 | ECG_ITS ---
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
[2024-10-11 21:38] VITALS: BP 130/89; PULSE 81; RESP 16; O2SAT 94
[2024-10-11 22:00] LABS: Troponin 5 2HR < 6.0 ng/L (0-15); Troponin 5 2HR Delta 0 ABS# (0-10)
[2024-10-12 00:03] VITALS: BP 129/87; PULSE 87; RESP 18; O2SAT 99
--- NOTE | 2024-10-13 07:36 | DCPLANNER ---
faxed outpatient lexiscan order to scheduling
== END 2024-10-12 00:03 | disposition home or self-care (01) ==
PROVIDERS: Emergency Provider Emergency Medicine; PCP Nurse Practitioner Family
DX: R07.9 Chest pain, unspecified (principal); Z86.718 Personal history of other venous thrombosis and embolism; Z86.711 Personal history of pulmonary embolism; Z79.01 Long term (current) use of anticoagulants; Z87.891 Personal history of nicotine dependence
CPT/HCPCS: 36415; 70450; 71045; 71275; 80053; 83880; 84484; 85025; 93005; 96374; 96375; 99285; J2270; J2405; J9999

== ENCOUNTER 2024-11-06 10:58 | Outpatient (CLI) | payer BC, MEDICAID, SELFPAY ==
--- NOTE | 2024-11-06 | ECG_ITS ---
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 Interpretive Statements Lung unchanged pre/post procedure; Intraprocedure shortess of breath; Symptoms resoled by discharge PROCEDURE: At the baseline, the patient's blood pressure was 122/80 with a heart rate of 82. The baseline electrocardiogram showed normal sinus rhythm with normal ST-Ts.. The patient exercised for 6 minutes and 36 seconds on a standard Jamie protocol. Patient attained a maximum heart rate of 163 beats per minute(95% of the maximum predicted heart rate) with a blood pressure at the peak exercise of 160/57 mm Hg. The EKG at the peak exercise revealed no significant changes. Patient did not have any chest pain or any significant cardiac arrhythmias with the exercise During the recovery phase, there were no new changes. Blood pressure at the end of the recovery phase was 113/69 mm Hg with a heart rate of 98 per minute. CONCLUSION: 1. No significant EKG changes with the treadmill exercise 2. No exercise-induced chest pain or cardiac arrhythmia 3. Slightly impaired exercise tolerance, attained a maximum of 10.2 METs Electronically Signed On 11-08-2024 12:21:42 CDT by Jaclyn Puentes M.D. [email or web address]
[2024-11-06 11:15] VITALS: BMI 25.0
[2024-11-06 11:36] VITALS: BP 113/69; PULSE 94
== END 2024-11-06 10:59 | disposition home or self-care (01) ==
LOC: CDL 11:01
PROVIDERS: PCP Nurse Practitioner Family; Visit Provider Nurse Practitioner Family
DX: R07.89 Other chest pain (principal); I49.8 Other specified cardiac arrhythmias
CPT/HCPCS: 93017

== ENCOUNTER 2024-11-28 14:13 | Outpatient (CLI) | payer BC, MEDICAID, SELFPAY ==
--- NOTE | 2024-11-28 14:20 | XR_ITS ---
WS: [email or web address] Exam: XR knee LT 3V* [id number] Date/Time of Exam: 11/28/2024 2:25 PM Reason For Exam: M25.562 - Pain in left knee No acute fracture. The joint compartments are preserved. No joint effusion. Normal soft tissues. Mild tendinous calcification along the superior pole of the patella. XR/XR knee LT 3V* [id number] IMPRESSION: 1. No fracture or other significant finding.
== END 2024-11-28 14:14 | disposition home or self-care (01) ==
LOC: RAD 14:14
PROVIDERS: PCP Nurse Practitioner Family; Visit Provider Nurse Practitioner Family
DX: M25.562 Pain in left knee (principal)
CPT/HCPCS: 73562

== ENCOUNTER 2024-12-23 07:19 | Outpatient (CLI) | payer BC, MEDICAID, SELFPAY ==
--- NOTE | 2024-12-23 08:00 | MR_ITS ---
WS: [id number] MRI LEFT KNEE HISTORY: M25.562 - Pain in left knee COMPARISON: Radiograph 11/28/2024 Anterior cruciate ligament: Intact. Posterior cruciate ligament: Intact. Medial collateral ligament: Intact. Posterior lateral corner structures: Intact. Medial menisci: Abnormal shape and signal posterior horn medial meniscus. Meniscal tear involving the central most free edge extending through the superior articular surface. Lateral meniscus: Intact. Normal signal, size and shape. Extensor mechanism: Distal quadriceps tendon and patellar tendons are intact. Fluid and soft tissue: No joint effusion. No Will's cyst. Osseous and articular structures: Patellofemoral compartment: Normal. Medial compartment: Mild narrowing of the medial compartment. There is mild diffuse chondromalacia along the weightbearing surface of the femoral condyle. Majority of the cartilage injury is associated with the meniscal tear. Lateral compartment: Mild thinning and fissuring of the cartilage. No full- thickness defects. There is a small cystic mass measuring 8.4 mm lateral to the superior femoral condyle. This is near the site of the adductor abdoulaye tendon insertion site and could be a small ganglion. The tendon itself appears intact. MR/MR knee LT con* [id number] IMPRESSION: 1. Meniscal tear involving the posterior horn of the medial meniscus extending to the super articular surface. 2. Associated with the meniscal tear in the medial compartment is a defect in the cartilage. 3. Mild narrowing medial compartment with mild diffuse chondromalacia along th e weightbearing surface of the femoral condyle. Greater injury near the menisca l tear. 4. Small fluid collection measuring 8.4 mm associated with the adductor abdoulaye tendon insertion site to the medial femoral condyle. This may be a small gangl ion.
== END 2024-12-23 07:20 | disposition home or self-care (01) ==
LOC: RAD 07:21
PROVIDERS: PCP Nurse Practitioner Family; Visit Provider Nurse Practitioner Family
DX: M25.562 Pain in left knee (principal); S83.242A Other tear of medial meniscus, current injury, left knee, initial encounter; X58.XXXA Exposure to other specified factors, initial encounter; M94.8X8 Other specified disorders of cartilage, other site; M94.261 Chondromalacia, right knee; M67.864 Other specified disorders of tendon, left knee
CPT/HCPCS: 73721

== ENCOUNTER → 2024-12-31 08:34 | Outpatient (BNVA) | payer BC, SELFPAY | PROVIDERS: PCP Nurse Practitioner Family; Visit Provider Specialist | DX: S83.242D Other tear of medial meniscus, current injury, left knee, subsequent encounter (principal); X58.XXXD Exposure to other specified factors, subsequent encounter; G89.29 Other chronic pain | CPT/HCPCS: 73560; 73565 ==

== ENCOUNTER 2025-01-22 06:38 | Outpatient (CLI) | payer BC, MEDICAID, SELFPAY ==
--- NOTE | 2025-01-22 07:54 | MR_ITS ---
WS: [email or web address] MRI LEFT knee pre and post arthrogram imaging. HISTORY: Torn meniscus. Pain with no injury. COMPARISON: 12/23/2024, radiograph 12/31/2024 Prearthrogram imaging: No ACL or PCL tear. Medial collateral ligaments and the lateral collateral ligaments are intact. Reidentified is the abnormal shape and signal posterior horn medial meniscus. Loss of the normal contour involving the superior articular surface of the posterior medial meniscus. No additional meniscal tear. Normal position of the patella. No marrow edema. Mild narrowing of the medial and lateral compartments. Moderate chondromalacia involving the weightbearing surface medial femoral condyle. Focal full-thickness defects within the cartilage along the medial femoral condyle closest towards the intercondylar notch. Although subtle there does appear to be delamination along the cartilage. The area of delamination is closely associated with the meniscal tear. Mild fraying and chondromalacia along the lateral femoral condyle and lateral tibial plateau. No significant joint effusion and no Will's cyst. Post arthrogram imaging: Contrast fills the defect and tear involving the posterior medial meniscus. Contrast also extends into the cartilaginous defect measuring 2 mm. This is a full-thickness cartilage defect. There is additional contrast extending through the cartilage along the cortical surface consistent with delamination. There are a few thin bands within the injected contrast suggesting there are few plica. MR/MR knee LT wo/w con [id number] IMPRESSION: 1. Tear involving the superior surface posterior horn medial meniscus. This tea r extends towards the intracondylar notch and does fill with contrast injected from the arthrogram. 2. Associated cartilaginous defects in the medial femoral condyle at the site o f the meniscal tear. Delamination is suspected involving the cartilage tear kris sest to the intracondylar notch. 3. No fracture or marrow edema. 4. Thin plica bands in the suprapatellar bursa extending through the injected a rthrogram contrast.
--- NOTE | 2025-01-22 08:00 | IR_ITS ---
WS: [id number] LEFT KNEE ARTHROGRAM (FLUOROSCOPY) LEFT knee arthrogram was performed in fluoroscopy prior to MRI evaluation. HISTORY: PAIN COMPARISON: 12/31/2024 and 12/23/2024 FLUOROSCOPY TIME: 2min [id number] # of spot films: 4 Procedure, risks and complications were explained to the patient. Complications include but not limited to bleeding, infection and contrast reaction. Current medications are reviewed. Skin is cleansed with ChloraPrep. Skin is anesthetized with 1% buffered lidocaine. 22-gauge needle is inserted into the patellofemoral. Approximately 40 cc of gadolinium mixture injected without complication. Patient will proceed to MRI evaluation immediately. Unable to access the lateral patellofemoral compartment. Contrast injected was successful along the medial patellofemoral and joint. No complications were encountered. Patient is instructed to watch for post procedure infection or bleeding. Patient is also instructed to contact the radiology department with any concerns. On the postcontrast imaging there is contrast noted extending through the cartilage along the medial femoral condyle. IR/[place] [id number] IMPRESSION: Uncomplicated LEFT knee joint injection prior to MR arthrogram.
[2025-01-22] MEDS: gadobenate dimeglumine 20 mL vial 3 ML IV (10:55)
[2025-01-22] MEDS: iohexol 240 mg/mL 50 mL Btl 20 ML INTRA-ARTI (10:56)
== END 2025-01-22 06:39 | disposition home or self-care (01) ==
LOC: RAD 06:39
PROVIDERS: PCP Nurse Practitioner Family; Visit Provider Specialist
DX: S83.242D Other tear of medial meniscus, current injury, left knee, subsequent encounter (principal); X58.XXXD Exposure to other specified factors, subsequent encounter; G89.29 Other chronic pain; R93.6 Abnormal findings on diagnostic imaging of limbs; M94.262 Chondromalacia, left knee
CPT/HCPCS: 27369; 73723; 77002; A9577; J9999; Q9966

== ENCOUNTER → 2025-02-04 10:26 | Outpatient (BNVA) | payer MEDICARE, MEDICAID, SELFPAY | PROVIDERS: PCP Nurse Practitioner Family; Visit Provider Specialist | DX: Z01.818 Encounter for other preprocedural examination (principal) | CPT/HCPCS: 36415; 80053; 81001; 85025 ==

== ENCOUNTER 2025-02-04 14:26 | Outpatient (CLI) | payer MEDICARE, MEDICAID, SELFPAY | END 2025-02-04 14:27 | disposition home or self-care (01) | LOC: SPT 14:26 | PROVIDERS: PCP Nurse Practitioner Family; Visit Provider Specialist | DX: Z46.89 Encounter for fitting and adjustment of other specified devices (principal); M25.562 Pain in left knee | CPT/HCPCS: 99214; L1812 ==

== ENCOUNTER 2025-02-24 06:16 | Day surgery (SDC) | payer MEDICARE, SELFPAY ==
[2025-02-24] VITALS (16 sets, daily range): BP systolic 111–132; BP diastolic 69–87; PULSE 80–96; RESP 16–18; TEMP 36.2–36.4; O2SAT 94–100; BMI 25.2
--- NOTE | 2025-02-24 07:13 | P.HPUD_ITS ---
Surgery/Procedure H&P Update DATE OF PROCEDURE: February 24, 2025 DATE H&P PERFORMED: 02/19/25 H&P UPDATE INFORMATION: I have reviewed H&P completed within last 30 days, I have examined patient prior to procedure, No changes to prior documentation, H&P is in [facility] EMR on date indicated and Risks and benefits of the procedure reviewed PRIMARY INDICATION FOR PROCEDURE: MRI arthrogram was obtained at [facility] on January 22, 2025, and this was interpreted by Dr. Xena Senior. Findings on this study include a tear involving the superior surface of the posterior horn the medial meniscus extending towards the intercondylar notch which filled with contrast injected from the arthrogram. This was visualized but only as an abnormal shape and signal within the posterior horn, but the tear is better identified with the arthrogram. There was also cartilaginous defect noted in the medial femoral condyle at the site of the meniscal tear with possible delamination involving the cartilage closest to the intercondylar notch. There was no fracture or marrow edema. Additionally, there were thin plica bands in the suprapatellar bursa which extended through the injected contrast material. Of further note as noted in the prior MRI, there is no anterior posterior cruciate ligament tear. Medial and lateral collateral ligaments were intact patella was in normal position and there was mild narrowing of the medial and lateral compartments with mild chondromalacia along the weightbearing surface of the medial femoral condyle and a focal full-thickness defect within the cartilage along the medial femoral condyle near the intercondylar notch. PLANNED PROCEDURE: Operation Date: 02/24/25 08:40 Proposed Procedures p Meniscectomy Arthroscopy Knee Arthroscopic Knee Meniscectomy with Chondroplasty(Left) - Ijeoma Saldivar MD Related Problem List Diagnoses 1. Tear of medial meniscus of left knee, current, unspecified tear type, subsequent encounter: Qualifiers: Tear current or old: current Encounter type: subsequent encounter Meniscus of knee: medial Meniscus tear of knee type: unspecified type Qualified Code(s): S83.242D - Other tear of medial meniscus, current injury, left knee, subsequent encounter 2. Primary osteoarthritis of left knee:
[2025-02-24] MEDS: acetaminophen 1,000 MG/100 ML PIGGYBACK 400 MG IV (07:19)
[2025-02-24] MEDS: ceFAZolin 2,000 mg SDV 2000 MG IVP (09:22)
[2025-02-24] MEDS: morphine 4 mg/mL SDV 1 mL 8 MG XX (10:07)
[2025-02-24] MEDS: ROPivacaine 0.5% SDV 30 mL 150 MG INJECTION (10:07)
--- NOTE | 2025-02-24 10:11 | ANES.PREANE2 ---
Pre-Anesthetic Assessment Height/Weight: Height 6 ft 3 in Weight 202 lb Temp Pulse Resp BP Pulse Ox O2 Del Method 97.6 F 80 16 111/85 99 Room Air 02/24/25 07:05 02/24/25 07:05 02/24/25 07:05 02/24/25 07:05 02/24/25 07:05 02/24/25 07:05 Preop Diagnosis: Meniscus tear Operation Date: 02/24/25 08:40 Proposed Procedures p Meniscectomy Arthroscopy Knee Arthroscopic Knee Meniscectomy with Chondroplasty(Left) - Ijeoma Saldivar MD Was Beta Leora taken within 24 hours: N/A Was Clonidine taken within 24 hours: N/A Last intake: Intake Last Liquid Date 02/23/25 Last Liquid Time 23:58 Last Solid Date 02/23/25 Last Solid Time 19:30 Social Tobacco and No alcohol Exam alert, oriented x 3, clear to auscultation bilaterally and regular rate & rhythm Airway Submandibular: within normal limits Cervical ROM: within normal limits Mallampati: Class II Comments: Comments: Missing all bottom teeth, denies any loose teeth on the upper Anesthetic Plan ASA status: 3 Anesthesia: General Other: No prior issues with anesthesia other than DVT after knee procedure NPO since yesterday evening On chronic Eliquis for DVTs. Last taken 02/21/2025 Current smoker Denies any cardiac issues Negative stress test in November Labs reviewed from 02/04/2025 acceptable for procedure Plan for general anesthesia Medications/Allergies Home Medications ?Medication ?Instructions ?Recorded ?Confirmed ?Last Taken ?Type polyethylene glycol 3350 17 17 g PO DAILY 1 month #510 grams 12/31/23 02/20/25 Unknown Rx gram/dose oral powder (Miralax) nikky kit #1 ea 06/20/24 02/19/25 Unknown Rx hinge knee brace, left #1 ea 02/04/25 02/19/25 Unknown Rx apixaban 2.5 mg tablet (Eliquis) 2.5 mg PO BID #60 tabs 02/19/25 02/24/25 02/21/25 Rx gabapentin 300 mg capsule 300 mg PO TID 02/19/25 02/24/25 02/22/25 History methocarbamol 500 mg tablet 500 mg PO PRN 02/19/25 02/20/25 02/20/25 History naloxone 4 mg/actuation nasal 4 mg intranasal PRN 02/19/25 02/20/25 Unknown History spray (Narcan) Allergies Allergy/AdvReac Type Severity Reaction Status Date / Time topiramate (From Topamax) Allergy ADR-Confusi Verified 02/20/25 13:28 on Current Medications Generic Name Dose Route Start Last Admin Trade Name Freq PRN Reason Stop Dose Admin Sodium Chloride 1,000 mls @ 30 mls/hr 02/24/25 07:00 02/24/25 07:18 Sodium Chloride 0.9% IV 02/25/25 06:59 30 mls/hr .Q24H KURT Administration PFSH Anesthesia Medical History (Updated 02/24/25 @ 07:16 by Ijeoma Saldivar MD) Cervical radicular pain History of peptic ulcer disease Primary osteoarthritis, left shoulder Chronic radicular cervical pain Fracture of left scapular body with delayed healing Complex regional pain syndrome I of upper limb Hx of nephrolithotomy with removal of calculi History of DVT (deep vein thrombosis) History of left shoulder fracture TIA (transient ischemic attack) x 4 History of gastric ulcer Surgical History H/O vagotomy History of appendectomy History of tonsillectomy and adenoidectomy Family History Mother Diabetes Chronic kidney disease (CKD) Grandfather Cancer Lung disease Father Heart disease CAD (coronary artery disease) Family/Other CAD (coronary artery disease) Diabetes Heart disease Stroke Grandmother Diabetes Stroke Denies family history of Clotting disorder Dementia Suicide Anesthesia complication Bleeding disorder Social History Smoking and tobacco/nicotine status: never used tobacco/nicotine Alcohol intake: never Substance/Drug Use: never Adopted: No Caregiver/support person: No Marital status: Sexually active: Yes Do you think of yourself as: Straight/Heterosexual Current gender identity: Male Data Anesthesia Cardiac Studies: Cardiac Event Monitor 09/22/21
[2025-02-24] MEDS: fentaNYL 50 mcg/mL INJ 2mL IVP ×2 (10:55→11:05)
--- NOTE | 2025-02-24 10:57 | PM.OP ---
Operative Report Date of procedure: February 24, 2025 Pre-op diagnosis: Left knee medial meniscal tear with primary osteoarthritis of the knee and possible plica Post-op diagnosis: Left knee medial and lateral meniscal tears with primary osteoarthritis primarily involving the medial femoral condyle lateral tibial plateau and undersurface of the patella as well as medial plica Post-op findings: Anterior horn medial meniscal tear with copious synovitis, lateral meniscal tear inner rim. 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 Medial plica. Procedure done: Left knee arthroscopy with partial medial and lateral meniscectomies, chondroplasty medial femoral condyle, lateral tibial plateau, trochlear groove, and undersurface of the patella Implants: None Specimens removed/disposition: Meniscal fragments disposed of Pathology: None Surgeon: Ijeoma Saldivar MD Medical Terminologist: None Anesthesia: General (Per LMA, ASA 2) Estimated blood loss (mL): 2 Tourniquet time (min): 32 (At 250 mmHg) IV fluids (mL): 500 Urine output (mL): 0 (No Nolasco) Complications: None Findings: As outlined above Condition: stable Disposition: PACU (Then return to same-day surgery for discharge to home) Brief History: This 49-year-old gentleman had ongoing knee pain unresponsive to nonoperative measurements. Patient had symptoms of instability with his knee giving way. 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 After discussion, the patient wished to proceed with operative intervention. MRI demonstrated narrowing of both medial and lateral compartments with chondromalacia along the weightbearing surface of the medial femoral condyle and a full-thickness focal defect within the cartilage along the medial femoral condyle near the intercondylar notch. After discussion, the patient wished to proceed with arthroscopic intervention. Risks and complications were discussed with him. Consents were signed and questions were answered. Procedure: Patient was brought to the operating theater and after undergoing adequate general anesthesia per LMA, ASA 2, the patient's left lower extremity was prepped and draped in usual fashion utilizing DuraPrep. A tourniquet was placed high on the leg prior to prepping and draping. The tourniquet was elevated prior to commencement of the surgical procedure to 250 mmHg. Total tourniquet time was 32 minutes. Elevation followed prepping and exsanguination. Prior to commencement of the surgical procedure, a surgical pause was performed. At the time of the surgical pause, we identified the site and side of surgery. We also confirmed the patient's identity and appropriate and timely administration of preoperative antibiotics. Preoperative surgical markings were also visualized at this time. Standard arthroscopic portals were utilized including superolateral, inferomedial, and inferolateral portals. The examination commenced in the suprapatellar pouch area where the patient was noted to have degenerative osteoarthritic change on both the trochlear groove and patella. The arthroscope was then passed in the medial compartment where there was noted to be tearing of the anterior horn of the medial meniscus. The posterior horn was evaluated and found to be intact without being able to be displaced into the joint. There was noted to be an area of chondromalacia in the mid weightbearing surface of the medial femoral condyle. There was no significant chondromalacia of the medial tibial plateau. The anterior horn was addressed with a combination of the intra-articular shaver and heat wand. After this, further evaluation of the medial compartment demonstrated no further pathology. The arthroscope was then passed across the notch area where anterior cruciate ligament was visualized and found to be intact. There was significant synovitis in this area, and this was debrided with a shaver. Hemostasis was obtained with electrocautery. The scope was passed into the lateral compartment with the knee in a [id number] position. There was noted to be a cobblestone appearance to the lateral tibial plateau. Additionally, in the same area, there was inner rim tearing of the lateral meniscus. The meniscus was palpated and found not to be displaceable into the joint. The meniscus was debrided with a combination of the intra-articular shaver and the intra-articular heat wand. The heat wand was also utilized to perform a chondroplasty of the lateral tibial plateau. Once this was accomplished, further evaluation of the lateral compartment demonstrated no further pathology. The scope was passed back through the knee medial and lateral compartments as well as the intercondylar notch. Finding no further pathology or loose bodies within either gutter, the scope was returned to the patellofemoral joint area. A chondroplasty was performed of the undersurface of the patella and the trochlear groove. This chondroplasty involved use of the intra-articular shaver as well as the heat wand. Once the patella and trochlear groove had been addressed, the medial plica was debrided with the intra-articular shaver. The area of irregularity over the femoral condyle in this area was also treated with a heat wand. The scope was passed back through the knee compartments to evaluate for other abnormalities. Finding none, attention was directed to closure. The knee was copiously irrigated and suctioned dry. Following this, each portal was closed with a simple suture followed by Dermabond, Steri-Strip and Tegaderm. Additionally, the knee was injected with 20 mL of half percent ropivacaine and 8 mg of morphine. Additional 10 mL of ropivacaine was placed about the portals. Sterile dressing was placed consisting of the Tegaderm followed by the Sehn wrap. Patient was returned to Recovery Room in satisfactory condition where he will be discharged home to follow-up in the office as scheduled. There were no complications and no specimens. Related Problem List Diagnoses 1. Tear of medial meniscus of left knee, current, unspecified tear type, subsequent encounter: 2. Other tear of lateral meniscus of left knee as current injury, initial encounter: 3. Chondromalacia, left knee:
[2025-02-24] MEDS: HYDROcodone-acetaminophen 5-325 mg Tablet 1 TAB PO (11:35)
[2025-02-24] MEDS: HYDROmorphone 1 mg/mL INJ 1ml 0.5 MG IVP (12:14)
--- NOTE | 2025-02-25 09:27 | PC.SOCIAL ---
Faxed [facility]Ut[facility] PT Pt came in for an outpt Knee surgery & had returned home. He had an order for HH. Director Law [employer] called pt at home. He said he is okay coming in to the [facility] for Outpt PT. Director [employer] faxed order & notes to [facility] & messaged them via Webex to follow up with pt at home. Order still needs signed by Dr Saldivar. No other needs voiced for Cm.
== END 2025-02-24 12:49 | disposition home or self-care (01) ==
PROVIDERS: PCP Nurse Practitioner Family; Visit Provider Specialist
PROC: (CPT 29880; principal; 2025-02-24 08:30)
DX: S83.242A Other tear of medial meniscus, current injury, left knee, initial encounter (principal); S83.282A Other tear of lateral meniscus, current injury, left knee, initial encounter; X58.XXXA Exposure to other specified factors, initial encounter; M17.12 Unilateral primary osteoarthritis, left knee; M94.262 Chondromalacia, left knee; Z79.01 Long term (current) use of anticoagulants; F17.200 Nicotine dependence, unspecified, uncomplicated; Z87.11 Personal history of peptic ulcer disease; Z86.718 Personal history of other venous thrombosis and embolism; Z86.73 Personal history of transient ischemic attack (TIA), and cerebral infarction without residual deficits
CPT/HCPCS: 29880; J0131; J0690; J1100; J1171; J1885; J2270; J2405; J2704; J2795; J3010; J3490; J7030; J9999